=== PATIENT | male | born 1935 | race Caucasian/White ===

== ENCOUNTER 2019-07-16 11:08 | Outpatient (CLI) | payer MEDICARE, SELFPAY ==
--- NOTE | ~2019-07-16 | XR_ITS ---
XR finger 3rd LT min 2V DATE: 07/16/2019 11:40 INDICATION: Fall. Laceration and soft tissue swelling at proximal interphalangeal joint TECHNIQUE: 4 views COMPARISON: None FINDINGS: There are osteoarthritic changes at the interphalangeal joints, greater at the distal inter phalangeal joint. No erosive change is noted. No fracture, dislocation, periosteal reaction or bone destruction, radiopaque soft tissue foreign bod y or subcutaneous emphysema is evident. IMPRESSION: Osteoarthritis Reviewed, dictated and finalized at location A. IMPRESSION: Osteoarthritis
== END 2019-07-16 11:09 | disposition home or self-care (01) ==
PROVIDERS: PCP Family Medicine; Visit Provider Physician Assistant
DX: M19.042 Primary osteoarthritis, left hand (principal)
CPT/HCPCS: 73140

== ENCOUNTER 2019-08-23 01:13 | Outpatient (CLI) | payer MEDICARE, SELFPAY ==
[2019-08-23 18:41] LABS: SARS-CoV-2 RNA PCR Negative
== END 2019-08-23 01:14 | disposition home or self-care (01) ==
LOC: ANHCOVIDDT 01:14
PROVIDERS: PCP Family Medicine; Visit Provider Internal Medicine Gastroenterology
DX: Z01.812 Encounter for preprocedural laboratory examination (principal); Z11.59 Encounter for screening for other viral diseases
CPT/HCPCS: 87635; C9803; U0003

== ENCOUNTER 2019-08-25 01:53 | Day surgery (SDC) | payer MEDICARE, SELFPAY ==
[2019-08-20 10:20] VITALS: BMI 29.2
--- NOTE | 2019-08-25 09:16 | WPDGICN ---
Assessment and Plan Assessment and plan (1) Colon polyp: Code(s): K63.5 - Polyp of colon Status: Chronic Assessment and Plan: Patient has a history of colon polyps in the past. A large sessile polyp was removed in November 2018. Patient Becky returns today to ensure complete excision of the sessile polyp. (2) Atrial fibrillation: Qualifiers: Atrial fibrillation type: unspecified Qualified Code(s): I48.91 - Unspecified atrial fibrillation Code(s): I48.91 - Unspecified atrial fibrillation Status: Chronic Assessment and Plan: Patient is on warfarin anticoagulation because of atrial fibrillation this will be held during the several days prior to the colonoscopy for evaluation of his colon polyp. GI Consult Note Consult date/time: 08/25/19 09:16 HPI: Yovani Avitia Greg Ledesma is a 84 year old male seen in evaluation at the request of Dr Geena Kapoor. Patient has a history of large sessile colon polyp requiring piecemeal removal in November 2018. He presents today for follow-up examination. His current weight appetite bowel movements are normal. Patient has had colon polyps in the past as well. His current weight appetite bowel movements are described as normal. He denies any blood in his stools he states his weight is stable. Family history is noncontributory. Review of Systems Review of Systems: All systems reviewed & are unremarkable except as noted in HPI and below PMFSH Surgical History Surgical History Hx of cardiac catheterization (~03/06/15) Family History Family History Father Family history of cardiovascular disease Family history of coronary artery disease Family history of malignant neoplasm, Onset Age: 74 Mother Family history of cardiovascular disease Family history of coronary artery disease Patient's mother is , Onset Age: 76 Sibling Family history of malignant neoplasm Family history of coronary artery disease Other Diabetes mellitus Social History Social History Smoking status: Former smoker Alcohol intake: never Meds Home Medications and Allergies Home Medications Medication Instructions Recorded Confirmed Type amiodarone 200 mg tablet 200 mg PO DAILY 12/30/18 08/20/19 History finasteride 5 mg tablet 5 mg PO DAILY 12/30/18 08/20/19 History allopurinol 300 mg tablet 300 mg PO DAILY #90 tablet 01/29/19 08/20/19 Rx losartan 50 mg tablet 50 mg PO DAILY #90 tablet 01/29/19 08/20/19 Rx tamsulosin 0.4 mg capsule 0.4 mg PO DAILY #90 cap 03/24/19 08/20/19 Rx warfarin 7.5 mg tablet 7.5 mg PO DAILY tablet 05/13/19 08/20/19 History atorvastatin 10 mg tablet 10 mg PO DAILY #90 tablet 06/14/19 08/20/19 Rx empagliflozin 25 mg tablet 25 mg PO DAILY #90 tablet 06/14/19 08/20/19 Rx levothyroxine 50 mcg tablet 50 mcg PO DAILY #90 tablet 06/14/19 08/20/19 Rx insulin degludec 100 unit/mL (3 28 unit SUB-Q HS ml 07/15/19 08/20/19 History mL) subcutaneous pen amlodipine 10 mg tablet 10 mg PO DAILY #90 tablet 08/19/19 08/20/19 Rx exenatide microspheres [Bydureon] 2 mg SUBCUT WEEKLY 08/20/19 08/20/19 History glimepiride 2 mg PO DAILY 08/20/19 08/20/19 History fg-li-YC-vit K-aiowt-bmr-coQ10 1 cap PO DAILY 08/20/19 08/20/19 History [Daily Multivitamin] omega 3-hnq-opy-fish oil [Fish Oil] 1 cap PO DAILY 08/20/19 08/20/19 History psyllium husk [Daily Fiber] 0.4 g PO DAILY 08/20/19 08/20/19 History Allergies Allergy/AdvReac Type Severity Reaction Status Date / Time Sulfa (Sulfonamide Allergy Severe Rash, HIVES Verified 08/25/19 09:19 Antibiotics) Exam Narrative: Exam Narrative: Physical exam reveals patient to be alert. Vital signs stable. HEENT exam unremarkable. Lungs are clear to auscultation and percussion. Heart is without murmur or extra sound
[2019-08-25 09:29] VITALS: BP 169/80; PULSE 73; RESP 16; TEMP 36.2; O2SAT 97; BMI 28.8
[2019-08-25] MEDS: LACTATED RINGERS 1,000 ML 150 ML IV CONT (09:36)
[2019-08-25 09:52] LABS: INR 1.2; Prothrombin Time 14.4 Seconds (11.1-14.7)
--- NOTE | 2019-08-25 09:52 | WPDANESEPPF ---
Anes - Initial Pre Proc Eval Procedure: Operation Date: 08/25/19 10:00 Proposed Procedures p Screening Colonoscopy - Epifanio Guillaume MD Date/Time: 08/25/19 09:52 Surgeon: Epifanio Guillaume MD Pre Op Diagnosis: hx colon polyps Patient Data Age: 84 Gender: M Height: 5 ft 9 in Weight: 88.4 kg Last Vital Signs Temp 97.1 F L 08/25/19 09:29 Pulse 73 08/25/19 09:29 Resp 16 08/25/19 09:29 BP 169/80 H 08/25/19 09:29 Pulse Ox 97 08/25/19 09:29 Allergies Allergy/AdvReac Type Severity Reaction Status Date / Time Sulfa (Sulfonamide Allergy Severe Rash, HIVES Verified 08/25/19 09:19 Antibiotics) Home Medications Medication Instructions Recorded Confirmed Type amiodarone 200 mg tablet 200 mg PO DAILY 12/30/18 08/25/19 History finasteride 5 mg tablet 5 mg PO DAILY 12/30/18 08/25/19 History allopurinol 300 mg tablet 300 mg PO DAILY #90 tablet 01/29/19 08/25/19 Rx losartan 50 mg tablet 50 mg PO DAILY #90 tablet 01/29/19 08/25/19 Rx tamsulosin 0.4 mg capsule 0.4 mg PO DAILY #90 cap 03/24/19 08/25/19 Rx warfarin 7.5 mg tablet 7.5 mg PO DAILY tablet 05/13/19 08/25/19 History atorvastatin 10 mg tablet 10 mg PO DAILY #90 tablet 06/14/19 08/25/19 Rx empagliflozin 25 mg tablet 25 mg PO DAILY #90 tablet 06/14/19 08/20/19 Rx levothyroxine 50 mcg tablet 50 mcg PO DAILY #90 tablet 06/14/19 08/25/19 Rx insulin degludec 100 unit/mL (3 28 unit SUB-Q HS ml 07/15/19 08/25/19 History mL) subcutaneous pen amlodipine 10 mg tablet 10 mg PO DAILY #90 tablet 08/19/19 08/25/19 Rx exenatide microspheres [Bydureon] 2 mg SUBCUT WEEKLY 08/20/19 08/25/19 History glimepiride 2 mg PO DAILY 08/20/19 08/25/19 History uk-sb-KD-vit O-qrcjv-yoc-coQ10 1 cap PO DAILY 08/20/19 08/25/19 History [Daily Multivitamin] omega 5-mxn-tlq-fish oil [Fish Oil] 1 cap PO DAILY 08/20/19 08/25/19 History psyllium husk [Daily Fiber] 0.4 g PO DAILY 08/20/19 08/25/19 History Laboratory Tests 08/25/19 09:35 PT Pending INR Pending Patient hx anesthesia problems: none Family hx anesthesia problems: none PMFSH Surgical History Surgical History Hx of cardiac catheterization (~03/06/15) Family History Family History Father Family history of cardiovascular disease Family history of coronary artery disease Family history of malignant neoplasm, Onset Age: 74 Mother Family history of cardiovascular disease Family history of coronary artery disease Patient's mother is , Onset Age: 76 Sibling Family history of malignant neoplasm Family history of coronary artery disease Other Diabetes mellitus Social History Social History Smoking status: Former smoker Alcohol intake: never Anes - Eval Final PreProcedure Day of Procedure 08/25/19 09:52 Patient weight: normal Heart: irregular rhythm Lungs: clear to auscultation Airway: Mallampati scale class II Neurological: alert and oriented Last oral intake: >/= 8 hours ASA classification: IV Emergent: no Anesthetic plan: proceed Anesthesia type and monitoring: general GIVS and standard monitoring Informed Consent: The patient's anesthetic plan and its attendant risks and benefits were discussed with the patient/family/POA. Questions were solicited and answers provided to the satisfaction of the patient/family/POA.
[2019-08-25 09:54] LABS: Glucose Point of Care 88 (65-105)
[2019-08-25 10:31] VITALS: BP 103/57; PULSE 69; RESP 16; O2SAT 94
[2019-08-25 10:41] VITALS: BP 96/51; PULSE 56; RESP 16; O2SAT 100
[2019-08-25 10:43] LABS: Glucose Point of Care 88 (65-105)
[2019-08-25 10:51] VITALS: BP 116/80; PULSE 65; RESP 16; O2SAT 98
== END 2019-08-25 11:02 | disposition home or self-care (01) ==
PROVIDERS: PCP Family Medicine; Visit Provider Internal Medicine Gastroenterology
PROC: 0DJD8ZZ Inspection of Lower Intestinal Tract, Via Natural or Artificial Opening Endoscopic (ICD-10-PCS; CPT 45378; principal; 2019-08-25 10:00)
DX: Z09 Encounter for follow-up examination after completed treatment for conditions other than malignant neoplasm (principal); D12.3 Benign neoplasm of transverse colon; I48.91 Unspecified atrial fibrillation; Z79.01 Long term (current) use of anticoagulants; Z87.891 Personal history of nicotine dependence; Z79.4 Long term (current) use of insulin
CPT/HCPCS: 45385; 36415; 85610; 88305; J2704; J7120

== ENCOUNTER → 2020-04-10 02:10 | Outpatient (CLI) | payer MEDICARE, SELFPAY ==
[2020-04-10 18:21] LABS: SARS-CoV-2 RNA PCR Negative
== END ==
PROVIDERS: PCP Family Medicine; Visit Provider Urology
DX: Z01.818 Encounter for other preprocedural examination (principal); Z20.822 Contact with and (suspected) exposure to COVID-19
CPT/HCPCS: C9803; U0003; U0005

== ENCOUNTER 2020-04-10 08:16 | Outpatient (CLI) | payer MEDICARE, SELFPAY ==
--- NOTE | 2020-04-10 08:15 | ECG_ITS ---
Measurements Intervals [place] Rate: 68 P: 257 IN: 202 QRS: 15 QRSD: 120 T: 147 QT: 330 QTc: 352 Interpretive Statements SINUS RHYTHM BORDERLINE AV CONDUCTION DELAY ANTEROSEPTAL INFARCT, AGE INDETERMINATE INFERIOR INFARCT, AGE INDETERMINATE BORDERLINE T WAVE ABNORMALITY- HIGH LATERAL LEADS BASELINE ARTIFACT- I, II, III, AVR, AVL, AVF ABNORMAL ECG Electronically Signed On 04-10-2020 8:50:07 LEAD HOUSEKEEPER by Josafat Dempsey D.O.
[2020-04-10 09:03] LABS: Anion Gap 6 mmol/L (8-16); Blood Urea Nitrogen 28 mg/dL (9-20); Calcium 9.8 mg/dL (8.4-10.2); Carbon Dioxide 31 mmol/L (22-30); Chloride 107 mmol/L (98-107); Estimated Glomerular Filt Rate 53; Glucose 169 mg/dL (75-110); Potassium 5.2 mmol/L (3.4-5.0); Sodium 144 mmol/L (137-145)
[2020-04-10 09:06] LABS: INR 1.2; Prothrombin Time 15.5 Seconds (11.1-14.7)
[2020-04-10 09:07] LABS: Partial Thromboplastin Time 34.4 SECONDS (22.3-36.8)
== END 2020-04-10 08:17 | disposition home or self-care (01) ==
PROVIDERS: Anesthesiology; PCP Physician Assistant; Visit Provider Urology
DX: Z01.810 Encounter for preprocedural cardiovascular examination (principal); E78.2 Mixed hyperlipidemia; E11.29 Type 2 diabetes mellitus with other diabetic kidney complication; N18.30 Chronic kidney disease, stage 3 unspecified; I25.2 Old myocardial infarction
CPT/HCPCS: 36415; 80048; 85610; 85730; 93005

== ENCOUNTER 2020-04-13 00:25 | Day surgery (SDC) | payer MEDICARE, SELFPAY ==
[2020-04-06 10:40] VITALS: BMI 29.5
[2020-04-13] VITALS (7 sets, daily range): BP systolic 123–156; BP diastolic 66–80; PULSE 58–72; RESP 10–20; TEMP 36.5–36.6; O2SAT 94–99
--- NOTE | 2020-04-13 07:02 | WPDHPUPDATE1 ---
History and Physical Update Update Date/Time: 04/13/20 07:02 History and Physical has been reviewed, including an updated exam of the patient. There are NO changes in the patient's condition. Risks, benefits, and alternatives have been discussed and questions answered. Patient agrees to proceed with procedure.
--- NOTE | 2020-04-13 07:57 | WPDANESEPPF ---
Anes - Initial Pre Proc Eval Procedure: Operation Date: 04/13/20 09:00 Proposed Procedures p Circumcision - Morgan Mahoney MD Date/Time: 04/13/20 07:57 Surgeon: Morgan Mahoney MD Pre Op Diagnosis: Phimosis Patient Data Age: 85 Gender: M Height: 1.75 m Weight: 90.9 kg Allergies Allergy/AdvReac Type Severity Reaction Status Date / Time Sulfa (Sulfonamide Allergy Severe Rash, HIVES Verified 04/06/20 10:24 Antibiotics) Home Medications Medication Instructions Recorded Confirmed Type amiodarone 200 mg tablet 200 mg PO QAM 12/30/18 04/06/20 History finasteride 5 mg tablet 5 mg PO HS 12/30/18 04/06/20 History warfarin 7.5 mg tablet See Rx Instructions .ROUTE 05/13/19 04/06/20 History .COMPLEX tablet insulin degludec 100 unit/mL (3 28 unit SUB-Q HS ml 07/15/19 04/06/20 History mL) subcutaneous pen exenatide microspheres [Bydureon] 2 mg SUBCUT WEEKLY 08/20/19 04/06/20 History glimepiride 2 mg PO PRN 08/20/19 04/06/20 History df-ee-AP-vit S-jljbz-cre-coQ10 1 cap PO DAILY 08/20/19 04/06/20 History [Daily Multivitamin] omega 5-bpx-rzi-fish oil [Fish Oil] 2 cap PO QAM 08/20/19 04/06/20 History psyllium husk [Daily Fiber] 0.4 g PO DAILY 08/20/19 04/06/20 History blood sugar diagnostic #100 each 09/20/19 02/08/20 Rx Jardiance 25 mg PO QAM 04/06/20 04/06/20 History allopurinol 300 mg PO QAM 04/06/20 04/06/20 History amlodipine 10 mg PO QAM 04/06/20 04/06/20 History atorvastatin 10 mg PO HS 04/06/20 04/06/20 History levothyroxine 50 mcg DAILY 04/06/20 04/06/20 History losartan 50 mg PO QAM 04/06/20 04/06/20 History metoprolol succinate 50 mg PO DAILY 04/06/20 04/06/20 History tamsulosin 0.04 mg HS 04/06/20 04/06/20 History Patient hx anesthesia problems: none Family hx anesthesia problems: none [facility] Past Medical History Medical History Age-related macular degeneration Arteriosclerosis of aorta Atrial fibrillation 2006 Atrial fibrillation Chronic kidney disease due to benign hypertension Colon polyp Gout Metabolic syndrome Mixed hyperlipidemia MRSA infection Stage 3 chronic kidney disease Type 2 diabetes mellitus with other diabetic kidney complication Surgical History Surgical History Hx of cardiac catheterization (~03/06/15) Family History Family History Father Family history of cardiovascular disease Family history of coronary artery disease Family history of malignant neoplasm, Onset Age: 74 Mother Family history of cardiovascular disease Family history of coronary artery disease Patient's mother is , Onset Age: 76 Sibling Family history of malignant neoplasm Family history of coronary artery disease Other Diabetes mellitus Social History Social History Smoking status: Former smoker Additional smoking assessment comments: STATES SMOKED FOR MAYBE 5 YRS LATE TEENS/EARILY 20'S Alcohol intake: former Alcohol use details: STATES HAS NOT DRANK FOR 60YRS Substance use: never Living arrangements: with family Spiritual care concerns: No Anes - Eval Final PreProcedure Day of Procedure 04/13/20 07:57 Patient weight: obese Heart: regular rate and rhythm Lungs: clear to auscultation and normal air movement Airway: Mallampati scale class II Neurological: alert and oriented Last oral intake: >/= 8 hours ASA classification: III Emergent: no Anesthetic plan: proceed Anesthesia type and monitoring: general LMA Informed Consent: The patient's anesthetic plan and its attendant risks and benefits were discussed with the patient/family/POA. Questions were solicited and answers provided to the satisfaction of the patient/family/POA.
[2020-04-13] MEDS: LACTATED RINGERS 1,000 ML 30 ML IV CONT (08:00)
[2020-04-13 08:09] LABS: Glucose Point of Care 133 (65-105)
[2020-04-13] MEDS: ceFAZolin 2 GM/D5W 50 ML 2 GM/50 ML BAG IVPB (08:21)
[2020-04-13] MEDS: BUPIVACAINE HCL 0.5% PF 30 ML VIAL INFILTRATE (08:46)
[2020-04-13] MEDS: BACITRACIN OINTMENT 15 GM TUBE 1 APPLIC TOPICAL (08:59)
--- NOTE | 2020-04-13 09:16 | PM.PROC ---
Procedure Note - Detailed Date of procedure: 04/13/20 Pre-op diagnosis: Phimosis Post-op diagnosis: same Procedure performed: Circumcision Description of procedure: The patient is brought to the operative suite areas prepped and draped in a routine sterile fashion while in a supine position. The foreskin was markedly adherent to the glans penis. These adhesions were bluntly taken-down with a hemostat. The lines of circumcision are outlined using a sterile marking pen. 2 circumferential circumcising incisions were made and carried down to Colle's fascia. The penile foreskin is circumferentially excised. Hemostasis is obtained with electric cautery. The edges of the penile skin reapproximated using a combination of running and interrupted 4-0 chromic. A penile block is administered at the base of the penis with 0.25% bupivacaine. The patient was taken to the recovery room in good condition. EBL was approximately 5cc. Anesthesia: GLMA Surgeon: Morgan Mahoney MD Estimated blood loss (mL): 5 Drains: No Packing: No Pathology: yes (Foreskin) Complications: No immediate complications Condition: stable Disposition: PACU
--- NOTE | 2020-04-13 09:56 | SUR.PHASEI ---
PT AWAKE AND ALERT. READY TO TRANSFER TO [facility]
== END 2020-04-13 11:05 | disposition home or self-care (01) ==
PROVIDERS: PCP Physician Assistant; Visit Provider Urology
PROC: (CPT 54161; principal; 2020-04-13 08:15)
DX: N47.1 Phimosis (principal); N47.7 Other inflammatory diseases of prepuce; I12.9 Hypertensive chronic kidney disease with stage 1 through stage 4 chronic kidney disease, or unspecified chronic kidney disease; N18.30 Chronic kidney disease, stage 3 unspecified; E11.22 Type 2 diabetes mellitus with diabetic chronic kidney disease; I25.10 Atherosclerotic heart disease of native coronary artery without angina pectoris; E78.2 Mixed hyperlipidemia; M10.9 Gout, unspecified; I48.91 Unspecified atrial fibrillation; H35.3290 Exudative age-related macular degeneration, unspecified eye, stage unspecified; Z79.01 Long term (current) use of anticoagulants; Z79.4 Long term (current) use of insulin; Z79.84 Long term (current) use of oral hypoglycemic drugs; Z86.14 Personal history of Methicillin resistant Staphylococcus aureus infection; Z87.891 Personal history of nicotine dependence; E66.9 Obesity, unspecified; Z68.30 Body mass index [BMI] 30.0-30.9, adult
CPT/HCPCS: 54161; 36415; 80048; 82948; 85610; 85730; 88304; 93005; A9270; C9803; J0690; J1100; J2405; J2704; J3010; J7120; U0003; U0005

== ENCOUNTER 2021-12-25 04:06 | Inpatient (IN) | payer MEDICARE, SELFPAY ==
[2021-12-25] VITALS (18 sets, daily range): BP systolic 123–155; BP diastolic 65–80; PULSE 71–85; RESP 14–20; TEMP 36.9–37.3; O2SAT 91–99
--- NOTE | ~2021-12-25 | XR_ITS ---
EXAMINATION: XR chest 1V portable DATE: 12/25/2021 05:12 INDICATION: Weakness. TECHNIQUE: A single frontal view of the chest was obtained on 2 radiographs. COMPARISON: Chest 2 views 10/30/2017, CT abdomen and pelvis 01/04/2015 FINDINGS: There is no pneumonia, pleural effusion, pneumothorax. The heart size is normal. IMPRESSION: 1. No acute cardiopulmonary disease. Reviewed, dictated and finalized at location A. DRILL OPERATOR HELPER CABLE TOOL
--- NOTE | ~2021-12-25 | US_ITS ---
EXAMINATION: US abdomen limited DATE: 12/29/2021 09:30 INDICATION: transaminitis TECHNIQUE: Multiple grayscale and Doppler ultrasound images of limited portions of the abdomen were o btained. COMPARISON: None available. FINDINGS: Not well visualized. The liver is enlarged to 17.3 cm, with increased echogenicity and norm al echotexture. No surface nodularity. Normal hepatopetal flow in the main portal vein. The gallbladd er is normal with no abnormal wall thickening, pericholecystic fluid or stones. The common bile duct measures 3 mm. There was no sonographic Giang sign. Incidental note of a 4.3 cm simple right upper p ole cyst. IMPRESSION: Hepatomegaly. Echogenic liver, most commonly due to steatosis but also can be seen with hepatitis and fibrosis. Reviewed, dictated and finalized at location K. Y WEIGHER IMPRESSION: Hepatomegaly. Echogenic liver, most commonly due to steatosis but also can be s een with hepatitis and fibrosis.
--- NOTE | ~2021-12-25 | CT_ITS ---
EXAMINATION: CTA brain carotid DATE: 12/27/2021 11:53 INDICATION: Altered mental status. TECHNIQUE: Computed tomographic angiography (CTA) of the head was performed without and with 100 mL O mnipaque-350 intravenous contrast. CTA of the neck was performed with intravenous contrast. Automated exposure control and iterative reconstruction technique were employed. The dose-length product was 2 005.87 mGy-cm. Maximum intensity projection and volume rendered 3D-reconstructions were created by malinda osborn technologist on a separate workstation. COMPARISON: None. FINDINGS: HEAD CTA: There is diffuse brain volume loss. There are scattered areas of low attenuation in the cer ebral white matter, which is within normal limits for the patient's age. There is no intracranial hem orrhage, acute infarction, or abnormal intracranial mass lesion. The ventricles are normal in size. T here is mucosal thickening in the paranasal sinuses. There are likely changes of ocular lens replacem ent surgeries. The mastoid air cells are normal. Right vertebral artery is dominant. There is no sign ificant stenosis of basilar artery or the posterior cerebral arteries. The posterior communicating ar teries are normal. There is no significant stenosis of the intracranial internal carotid arteries or anterior or middle cerebral arteries. Anterior communicating artery is normal. NECK CTA: There is a small left pleural effusion. There are no pathologically enlarged lymph nodes. T here is plaque in the proximal internal carotid arteries. There is 0% stenosis of the proximal right internal carotid artery relative to normal distal artery lumen diameter (NASCET criteria). There is 0 % stenosis of the proximal left internal carotid artery relative to normal distal artery lumen diamet er. There is moderate cervical spondylosis. IMPRESSION: 1. Normal aging brain. 2. No aneurysm or significant intracranial arterial stenosis. 3. 0% stenosis of the proximal internal carotid arteries relative to normal distal artery lumen diame ters (NASCET criteria). Reviewed, dictated and finalized at location A. TS MEDICINE TRAINER IMPRESSION: 1. Normal aging brain. 2. No aneurysm or significant intracranial arterial stenosis. 3. 0% stenosis of the proximal internal carotid arteries relative to normal dis zulma artery lumen diameters (NASCET criteria).
--- NOTE | ~2021-12-25 | XR_ITS ---
EXAMINATION: XR chest 1V portable DATE: 12/28/2021 10:46 INDICATION: COVID-19 pneumonia. TECHNIQUE: A single frontal view of the chest was obtained on 2 radiographs. COMPARISON: Chest single view 12/25/2021 FINDINGS: There are airspace opacities at the lung bases. No pleural effusion or pneumothorax. The he art size is normal. IMPRESSION: 1. Worsened airspace opacities at the lung bases, consistent with atelectasis versus pneumonia. Reviewed, dictated and finalized at location A. [employer] IMPRESSION: 1. Worsened airspace opacities at the lung bases, consistent with atelectasis v ersus pneumonia.
--- NOTE | 2021-12-25 04:48 | ECG_ITS ---
Measurements Intervals [place] Rate: 75 P: 257 [place]: 186 QRS: 16 QRSD: 114 T: 98 QT: 406 QTc: 455 Interpretive Statements SINUS OR ECTOPIC ATRIAL RHYTHM INTRAVENTRICULAR CONDUCTION DELAY ANTEROSEPTAL INFARCT, AGE INDETERMINATE BORDERLINE ST-T WAVE ABNORMALITY- INF/HIGH LAT LEADS BASELINE ARTIFACT- I, II, III, AVR, AVL, AVF, V4-V6 ABNORMAL ECG COMPARED TO ECG 04/10/2020 08:55:32 NO SIGNIFICANT CHANGES Electronically Signed On 12-25-2021 6:47:22 CELL STRIPPER FINAL by Josafat Dempsey D.O.
--- NOTE | 2021-12-25 04:50 | ED.WEAKNESS ---
HPI - Weakness General Chief complaint: Weakness <Denilson Schulte MD - Last Filed: 12/25/21 08:52> Stated complaint: FALL, WEAKNESS, DIZZINESS <Denilson Schulte MD - Last Filed: 12/25/21 08:52> Time Seen by Provider: 12/25/21 04:27 <Denilson Schulte MD - Last Filed: 12/25/21 08:52> History of Present Illness HPI Narrative: This is an 86-year-old male past medical history of A. fib on Coumadin, type 2 diabetes, hypertension, who presents to the emergency department by EMS after a fall with generalized weakness. Patient states he has felt generally weak for the past several weeks, worse in the last few days with some upper respiratory congestion and cough. He states his was recently diagnosed with the flu. This evening while walking, he felt generally weak and states he lowered himself to the ground. He denies falling, head injury or loss of consciousness. He states he was not able to stand for approximately 30 minutes until EMS arrival. He denies chest pain, shortness of breath, diarrhea or bleeding from any source. He has no other complaints at this time. <Denilson Schulte MD - Last Filed: 12/25/21 08:52> Related Data Home medications: Home Medications Medication Instructions Recorded Confirmed finasteride 5 mg tablet 5 mg PO HS 12/30/18 12/25/21 warfarin 7.5 mg tablet 7.5 mg PO .TUE/THUR/SUN 05/13/19 12/25/21 insulin degludec 100 unit/mL (3 28 unit subcut HS 07/15/19 12/25/21 mL) subcutaneous pen (Tresiba FlexTouch U-100 insulin) exenatide microspheres 2 mg/0.65 2 mg subcut WEEKLY 08/20/19 12/25/21 mL subcutaneous pen injector (Bydureon) glimepiride 2 mg tablet 2 mg PO PRN BLOOD SURGAR 08/20/19 12/25/21 acoutmer-tsi-VQ 200 mcg-vit K 100 1 cap PO DAILY 08/20/19 12/25/21 mcg-lycop 500 vpu-gvvrvh-O35 capsule (Daily Multivitamin) omega 1-iqa-irk-fish oil 1,000 mg 2 cap PO QAM 08/20/19 12/25/21 (120 mg-180 mg) capsule (Fish Oil) psyllium husk 0.4 gram capsule 0.4 g PO DAILY 08/20/19 12/25/21 (Daily Fiber) metoprolol succinate 50 mg 50 mg PO DAILY 04/06/20 12/25/21 tablet,extended release 24 hr dapagliflozin 10 mg tablet 10 mg PO DAILY 06/05/20 12/25/21 (Farxiga) amiodarone 200 mg tablet 200 mg PO .COMPLEX 01/15/21 12/25/21 oxybutynin chloride 5 mg 5 mg PO DAILY 05/18/21 12/25/21 tablet,extended release 24 hr allopurinol 300 mg tablet 300 mg PO DAILY 12/25/21 12/25/21 amlodipine 10 mg tablet 10 mg PO DAILY 12/25/21 12/25/21 atorvastatin 10 mg tablet 10 mg PO DAILY 12/25/21 12/25/21 levothyroxine 50 mcg tablet 50 mcg PO DAILY 12/25/21 12/25/21 tamsulosin 0.4 mg capsule 0.4 mg PO DAILY 12/25/21 12/25/21 warfarin 10 mg tablet 5 mg PO .M/W/F/SAT 12/25/21 12/25/21 <Denilson Schulte MD - Last Filed: 12/25/21 08:52> Allergies/Adverse reactions: Allergies Allergy/AdvReac Type Severity Reaction Status Date / Time Sulfa (Sulfonamide Allergy Severe Rash, HIVES Verified 12/21/21 13:15 Antibiotics) <Denilson Schulte MD - Last Filed: 12/25/21 08:52> Review of Systems Review of Systems: CONSTITUTIONAL: Denies fever, chills, or sweats. EYES: Denies visual changes, redness, or discharge. ENT: Congestion, rhinorrhea denies sore throat, or otalgia. CARDIOVASCULAR: Denies chest pain, palpitations, or edema. RESPIRATORY: Denies cough or dyspnea. GASTROINTESTINAL: Denies abdominal pain, nausea, vomiting, or diarrhea. GENITOURINARY: Denies dysuria or hematuria. SKIN: Denies rash or itching. MUSCULOSKELETAL: Denies back pain, joint pain, or myalgia. NEUROLOGIC: Generalized weakness denies headache, numbness, dizziness PSYCHIATRIC: Denies anxiety or depression. <Denilson Schulte MD - Last Filed: 12/25/21 08:52> [facility] Past Medical History Medical History: Medical History (Updated 12/25/21 @ 14:41 by KATT Durham) Age-related macular degeneration Arteriosclerosis of aorta Atrial fibrillation 2007 Atrial fibrillation Chronic
[2021-12-25 05:43] LABS: Influenza A QL RT-PCR Negative (Negative); Influenza B QL RT-PCR Negative (Negative); SARS-CoV-2 RNA PCR Positive
[2021-12-25 05:45] LABS: Appearance Urine Clear (Clear); Bilirubin Urine Negative (Negative); Blood Urine Negative (Negative); Color Urine Yellow (Yellow); Glucose Urine UA 2+ mg/dL (Negative); Ketones Urine Trace mg/dL (Negative); Leukocyte Esterase Ur Negative LEU/UL (Negative); Nitrate Urine Negative (Negative); Protein Urine Negative (Negative); Urobilinogen Urine 0.2 mg/dL (<2.0); pH Urine 6.5 (5.0-9.0)
[2021-12-25 05:46] LABS: Basophils Percent Auto 0.5 % (0.2-1.2); Eosinophils Absolute Auto 0.1 K/mm3 (0-0.3); Eosinophils Percent Auto 0.8 % (0-4.4); Hematocrit 48.7 % (42.0-52.0); Hemoglobin 16.5 g/dL (14.0-18.0); Immature Granulocyte Absolute 0.03 K/mm3 (0.00-0.031); Immature Granulocyte Percent A 0.4 % (0-0.5); Immature Platelet Fraction Pct 4.5 % (0.9-11.2); Lymphocytes Absolute Auto 1.13 K/mm3 (0.9-3.2); Lymphocytes Percent Auto 13.6 % (18.3-44.2); Mean Corpuscular HGB Conc 33.9 g/dl (32-36); Mean Corpuscular Hemoglobin 33.1 pg (26-34); Mean Corpuscular Volume 97.8 fl (80-100); Monocytes Absolute Auto 1.2 K/mm3 (0.1-0.6); Monocytes Percent Auto 14.8 % (2.6-8.5); Neutrophils Absolute Auto 5.8 K/mm3 (1.3-6.7); Neutrophils Percent Auto 69.9 % (45.5-73.1); Platelet Count Result 118 k/mm3 (150-375); Red Blood Count 4.98 M/mm3 (4.6-6.20); Red Cell Distribution Width 14.4 % (11.5-14.5); White Blood Count 8.3 K/mm3 (4.5-10.0)
[2021-12-25 05:53] LABS: Alanine Aminotransferase 32 U/L (6-50); Albumin Level 4.1 g/dL (3.5-5.1); Alkaline Phosphatase 55 U/L (38-126); Anion Gap 12 mmol/L (8-16); Aspartate Amino Transferase 28 U/L (17-59); Bilirubin,Total 0.9 mg/dL (0.2-1.3); Blood Urea Nitrogen 21 mg/dL (9-20); Calcium 8.5 mg/dL (8.4-10.2); Carbon Dioxide 25 mmol/L (22-30); Chloride 104 mmol/L (98-107); Creatine Kinase 74 U/L (55-170); Estimated Glomerular Filt Rate > 60; Glucose 121 mg/dL (65-110); Potassium 3.5 mmol/L (3.4-5.0); Sodium 141 mmol/L (137-145)
[2021-12-25 06:04] LABS: Troponin I < 0.012 ng/mL (0.000-0.034)
[2021-12-25 06:07] LABS: Mucus Urine Rare /lpf; RBC Urine 0-2 /hpf (0-2); WBC Urine 0-3 /hpf
[2021-12-25 06:08] LABS: Add Urine Microscopic? YES
--- NOTE | 2021-12-25 09:12 | PCCCNOTE ---
Spoke with pt regarding home health, PT/OT. Pt would like to have these services set up to get stronger at home. I call several HH agencies, but due to pt being newly diagnosed with COVID they all have mandatory 10 day wait period before services could start.
--- NOTE | 2021-12-25 10:01 | PC.NURSE ---
Attempted to walk patient in room. Patient very unsteady and would not have been able to stand without RN assistance. Patient had to be assisted back to bed with RICHY Durham's help.
--- NOTE | 2021-12-25 11:30 | PM.IMHP ---
H&P: HPI History of Present Illness Date/Time: 12/25/21 11:30 Chief Complaint: Weakness, I just can't walk Narrative: Patient is an 86-year-old male with past medical history of AFib, diabetes, hypertension, who presented to the ED with complaints of a fall a related to generalized weakness. Patient stated that he went to the bathroom and as he was trying to exit the bathroom he got very lightheaded and was unable to get up on his own. Patient stated that he uses a walker or cane at baseline. Patient also stated that he is usually stable however has had some weakness of last year. He does have a little cough which he stated that he was unsure of what was coming up. He also denies any chest pain, shortness a breath, nausea, vomiting, diarrhea, constipation, weakness, sweats, fevers, chills. Patient stated that he had 0 falls over the last month. He also stated that his is who helps him at home. Patient is currently needing support at home, and will probably need to get some rehab, as it appears he has been down for the last couple of weeks. patient is being admitted to the hospitalist service for rehab placement in observation Review of Systems Review of Systems: All systems reviewed & are unremarkable except as noted in HPI and below PMFSH Past Medical History Medical History (Updated 12/25/21 @ 14:41 by KATT Durham) Age-related macular degeneration Arteriosclerosis of aorta Atrial fibrillation 2006 Atrial fibrillation Chronic kidney disease due to benign hypertension Colon polyp Gout Metabolic syndrome Mixed hyperlipidemia MRSA infection Stage 3 chronic kidney disease Type 2 diabetes mellitus with other diabetic kidney complication Surgical History Surgical History Hx of cardiac catheterization (~03/06/15) Family History Family History Father Family history of cardiovascular disease Family history of coronary artery disease Family history of malignant neoplasm, Onset Age: 74 Mother Family history of cardiovascular disease Family history of coronary artery disease Patient's mother is , Onset Age: 76 Sibling Family history of malignant neoplasm Family history of coronary artery disease Other Diabetes mellitus Social History Social History (Updated 12/25/21 @ 14:12 by KATT Durham) Social History: Patient currently lives with his Faustina who will be his surrogate. He retired from [employer] and has 4 boys. He denies any pets in the home. He also wishes to be a full code however only if his life would be viable. Smoking status: Former smoker Additional smoking assessment comments: STATES SMOKED FOR MAYBE 5 YRS LATE TEENS/EARILY 20'S Alcohol intake: former Alcohol use details: STATES HAS NOT DRANK FOR 60YRS Substance use: never Lack of Transportation: No Lack of Food: Never True Current Housing: I Have Housing Concerned About Future Housing: No Difficulty Paying Gas/Electric Bills: No Difficulty Paying for Meds: No Currently Unemployed: No Education: High School Diploma/GED Living arrangements: with family Additional living arrangements comments: With Occupation/Education: retired Additional occupation/education comments: [employer] Gender identity (if verbalized by the patient): Male Sexual Orientation (if Verbalized by the Patient): Straight or Heterosexual Spiritual care concerns: No Agree to blood products: Yes Meds Home Medications and Allergies Home Medications Medication Instructions Recorded Confirmed Type finasteride 5 mg tablet 5 mg PO HS 12/30/18 12/25/21 History warfarin 7.5 mg tablet 7.5 mg PO .TUE/THUR/SUN 05/13/19 12/25/21 History insulin degludec 100 unit/mL (3 28 unit subcut HS 07/15/19 12/25/21 History mL) subcutaneous pen (Tresiba
[2021-12-25 16:47] LABS: Glucose Point of Care 141 mg/dl (65-105)
[2021-12-25] MEDS: WARFARIN (*PBKC) 7.5 MG TABLET PO (17:27)
[2021-12-25] MEDS: FINASTERIDE 5 MG TABLET PO (20:22)
[2021-12-25] MEDS: INSULIN GLARGINE (*BKC) 100 UNITS/ML 23 UNITS SUB-Q (20:30)
[2021-12-25 22:30] LABS: Glucose Point of Care 184 mg/dl (65-105)
[2021-12-26] VITALS (8 sets, daily range): BP systolic 131–147; BP diastolic 68–74; PULSE 66–72; RESP 14–18; TEMP 36.3–37.5; O2SAT 91–100
[2021-12-26] MEDS: LEVOTHYROXINE SODIUM 50 MCG TABLET PO (05:27)
[2021-12-26 06:09] LABS: Basophils Percent Auto 0.6 % (0.2-1.2); Eosinophils Percent Auto 0.3 % (0-4.4); Hematocrit 47.9 % (42.0-52.0); Hemoglobin 16.4 g/dL (14.0-18.0); Immature Granulocyte Absolute 0.02 K/mm3 (0.00-0.031); Immature Granulocyte Percent A 0.3 % (0-0.5); Lymphocytes Absolute Auto 1.84 K/mm3 (0.9-3.2); Lymphocytes Percent Auto 26.2 % (18.3-44.2); Mean Corpuscular HGB Conc 34.2 g/dl (32-36); Mean Corpuscular Hemoglobin 32.4 pg (26-34); Mean Corpuscular Volume 94.7 fl (80-100); Mean Platelet Volume 10.8 fl (7.4-10.4); Monocytes Absolute Auto 1.6 K/mm3 (0.1-0.6); Monocytes Percent Auto 22.1 % (2.6-8.5); Neutrophils Absolute Auto 3.5 K/mm3 (1.3-6.7); Neutrophils Percent Auto 50.5 % (45.5-73.1); Platelet Count Result 102 k/mm3 (150-375); Red Blood Count 5.06 M/mm3 (4.6-6.20); Red Cell Distribution Width 14.3 % (11.5-14.5)
[2021-12-26 06:16] LABS: INR 1.5; Prothrombin Time 17.7 Seconds (11.1-14.7)
[2021-12-26 06:17] LABS: Partial Thromboplastin Time 41.7 SECONDS (22.3-36.8)
[2021-12-26 06:20] LABS: Alanine Aminotransferase 34 U/L (6-50); Albumin Level 4.1 g/dL (3.5-5.1); Alkaline Phosphatase 63 U/L (38-126); Anion Gap 12 mmol/L (8-16); Aspartate Amino Transferase 34 U/L (17-59); Bilirubin,Total 0.7 mg/dL (0.2-1.3); Blood Urea Nitrogen 19 mg/dL (9-20); Calcium 8.5 mg/dL (8.4-10.2); Carbon Dioxide 26 mmol/L (22-30); Chloride 103 mmol/L (98-107); Estimated Glomerular Filt Rate > 60; Glucose 91 mg/dL (65-110); Magnesium 2.1 mg/dL (1.6-2.3); Potassium 3.5 mmol/L (3.4-5.0); Sodium 141 mmol/L (137-145)
[2021-12-26 07:54] LABS: Glucose Point of Care 163 mg/dl (65-105)
--- NOTE | 2021-12-26 09:10 | PM.IMPN ---
Progress Note: A&P Assessment and Plan (1) COVID-19: Code(s): U07.1 - COVID-19 Status: Acute Assessment and Plan: Tested positive in the ed on 12/25/21. No supplemental O2 needs currently. CXR shows no acute disease IV Remdesivir and dexamethasone not indicated Monitor respiratory status Continue supportive care. (2) Fall: Qualifiers: Encounter type: initial encounter Qualified Code(s): W19.XXXA - Unspecified fall, initial encounter Code(s): W19.XXXA - Unspecified fall, initial encounter Status: Acute Assessment and Plan: reported ground level fall on admission. PT and OT consulted and recommend SNF. Awaiting placement. ambulate with assistance (3) General weakness: Code(s): R53.1 - Weakness Status: Acute Assessment and Plan: as above (4) Type 2 diabetes mellitus with other diabetic kidney complication: Code(s): E11.29 - Type 2 diabetes mellitus with other diabetic kidney complication Status: Chronic Assessment and Plan: Chronic, stable. serum glucose 91. hold home glimepiride Continue Accu-Cheks a.c. HS, moderate dose aspart meal correction and hypoglycemia protocol Bydureon not on formulary Lantus 23 units at HS Resume SGLT-2 empagliflozin formulary substitute started. (5) Hypothyroidism (acquired): Code(s): E03.9 - Hypothyroidism, unspecified Status: Acute Assessment and Plan: Chronic, stable. continue home levothyroxine 50 mcg daily TSH from 12/13/2021 3.840, T4 1.38 (6) Mixed hyperlipidemia: Code(s): E78.2 - Mixed hyperlipidemia Status: Chronic Assessment and Plan: Chronic, cholesterol from 12/13/2021 showed 165, LDL 92, the LDL 32, HDL 41 increase atorvastatin to 20 mg daily (7) Atrial fibrillation: Qualifiers: Atrial fibrillation type: unspecified Qualified Code(s): I48.91 - Unspecified atrial fibrillation Code(s): I48.91 - Unspecified atrial fibrillation Status: Chronic Assessment and Plan: Chronic, currently in sinus rhythm 75 continue warfarin for anticoagulation continue amiodarone 200 mg Q48 hours follows with Dr. Jansen outpatient. stable. Check PT/INR daiily Plan CODE STATUS: FULL CODE Disposition: SNF placement. Awaiting authorization Time Spent With Patient Time with patient: 15 - 25 minutes Subjective Date/time seen: 12/26/21 09:10 He reports mild sore throat, headache and nonproductive cough. No SOB, PAINTER, sputum, chest pain, loss of taste or smell, abd pain, N/V/D or constipation. He reports his appetite is fair and generalized weakness is unchanged. Review of Systems Review of Systems: All systems reviewed & are unremarkable except as noted in HPI and below Exam Narrative: General: No acute distress.? non-toxic appearing. Older adult male sitting up in bed. Mental Status/Psych: Awake, alert and oriented x3 with clear speech. Neutral mood and affect. Pleasant and cooperative. Skin: Skin fair, warm, dry and intact without rashes or lesions. No open wounds. Good turgor.? HEENT: Normocephalic. Sclera is non-icteric. Pupils equal and round. Grossly normal hearing. Oral mucosa moist. Oropharynx within normal limits. Neck: Supple. Heart: S1 and S2 regular rate and rhythm. No murmurs, gallops, or rubs auscultated. Chest: Respirations even and unlabored. Lung sounds are clear to auscultation in all lobes bilaterally without wheezes, rhonchi, or rales. Speaking in full sentences. Abdomen: Soft, round and non-tender to palpation.? Bowel sounds present in all 4 quadrants. Extremities:? Grossly normal ROM all extremities with generalized weakness. No edema, erythema or tenderness to palpation. Radial and dorsalis pedis pulses +2 bilaterally. Neurological: No focal deficits. Cranial nerves 2-12 grossly intact. No facial droop. Objective Data Vital Sign
[2021-12-26] MEDS: LOSARTAN POTASSIUM 100 MG TABLET PO (09:20)
[2021-12-26] MEDS: amLODIPine BESYLATE 5 MG TABLET 10 MG PO (09:20)
[2021-12-26] MEDS: OMEGA 3 POLYUNSAT FATTY ACIDS 1 GM CAP 2 GM PO (09:20)
[2021-12-26] MEDS: ATORVASTATIN 10 MG TABLET PO (09:20)
[2021-12-26] MEDS: TAMSULOSIN HCL 0.4 MG CAPSULE PO (09:20)
[2021-12-26] MEDS: allopurinoL 300 MG TABLET PO (09:20)
[2021-12-26] MEDS: EMPAGLIFLOZIN 10 MG TABLET PO (09:20)
[2021-12-26] MEDS: METOPROLOL SUCCINATE EXT REL 50 MG TABCR PO (09:21)
[2021-12-26 11:35] LABS: Glucose Point of Care 126 mg/dl (65-105)
[2021-12-26 11:48] LABS: Folic Acid > 20.0 ng/mL (2.76->20)
[2021-12-26] MEDS: THERAPEUTIC MULTIVITAMINS/MINERALS TAB (*BKC) 1 TABLET PO (11:58)
[2021-12-26 16:51] LABS: Glucose Point of Care 123 mg/dl (65-105)
[2021-12-26] MEDS: AMIODARONE HCL 200 MG TABLET PO (18:11)
[2021-12-26] MEDS: WARFARIN (*PBKC) 5 MG TABLET PO (18:11)
[2021-12-26] MEDS: ACETAMINOPHEN 325 MG TABLET 650 MG PO (20:21)
[2021-12-26] MEDS: FINASTERIDE 5 MG TABLET PO (20:22)
[2021-12-26] MEDS: INSULIN GLARGINE (*BKC) 100 UNITS/ML 23 UNITS SUB-Q (20:37)
[2021-12-26 20:55] LABS: Glucose Point of Care 169 mg/dl (65-105)
[2021-12-27] VITALS (15 sets, daily range): BP systolic 71–159; BP diastolic 52–106; PULSE 57–135; RESP 14–20; TEMP 36–36.6; O2SAT 90–94
--- NOTE | 2021-12-27 | ECHO_ITS ---
Patient Info Name: Yovani Garza Age: 86 years : 1935 Gender: Male Ht: 68 in Wt: 206 lbs BSA: 2.15 m2 HR: 68 bpm BP: 125 / 69 mmHg Heart Rhythm: Sinus Rhythm Technical Quality: Good Exam Date: 12/27/2021 4:29 PM Exam Location: [facility] Pulmonary Exam Room: [facility] Patient Status: Inpatient Admit Date: 12/27/2021 Staff Ordering Physician: Sandra Prakash APRN Systems Architecture Analyst: Kristie Lynch RDCS Attending Provider: Cash Jacques MD Referring Physician: Olinda AQUINO; Exam Type: CA echo doppler color flow Study Info Indications - syncope covid Complete two-dimensional, color flow and Doppler transthoracic echocardiogram is performed. Summary 1. Complete two-dimensional, color flow and Doppler transthoracic echocardiogram is performed. 2. Normal left ventricular size with severe concentric hypertrophy. 3. Hyperdynamic systolic contractility with grade 2 diastolic noncompliance. 4. Dilated left atrium. 5. Trivial amount of MR. Left Ventricle Left ventricular chamber dimension is normal. Left ventricular systolic function is hyperdynamic, estimated at >70%. There is severe concentric increased left ventricular wall thickness. The left ventricular diastolic function is grade II diastolic dysfunction. Right Ventricle Right ventricular chamber dimension is normal. Left Atria Left atrial chamber dimension is moderately enlarged. Right Atria Right atrial chamber dimension is normal. Aortic Valve The aortic valve is trileaflet. There is mild aortic valve sclerosis. Pulmonic Valve The pulmonic valve is not well visualized. Mitral Valve The mitral valve has normal leaflets. There is trace mitral valve regurgitation. Tricuspid Valve The tricuspid valve leaflets are normal. Pericardium/Pleural The pericardium appears normal. Aorta The aortic root size at the sinus of Valsalva is normal. Left Ventricular Outflow Tract Name Value Normal LVOT 2D LVOT Diameter 2.1 cm LVOT Doppler LVOT Peak Gradient 3 mmHg LVOT Mean Gradient 2 mmHg LVOT VTI 17 cm LVOT VTI/AV VTI Ratio 0.7 LVOT Stroke Volume 58 ml LVOT CO 13.6 l/min LVOT CI 6.3 l/min/m2 Pulmonic Valve Name Value Normal PV Doppler PV Peak Gradient 2 mmHg Mitral Valve Name Value Normal MV Doppler MV Decel [place] 157 cm/s2 MV PHT
[2021-12-27] MEDS: LEVOTHYROXINE SODIUM 50 MCG TABLET PO (05:46)
[2021-12-27 07:50] LABS: INR 1.5; Prothrombin Time 17.9 Seconds (11.1-14.7)
[2021-12-27 07:55] LABS: Glucose Point of Care 102 mg/dl (65-105)
[2021-12-27] MEDS: OMEGA 3 POLYUNSAT FATTY ACIDS 1 GM CAP 2 GM PO (08:33)
[2021-12-27] MEDS: EMPAGLIFLOZIN 10 MG TABLET PO (08:34)
[2021-12-27] MEDS: TAMSULOSIN HCL 0.4 MG CAPSULE PO (08:34)
[2021-12-27] MEDS: ATORVASTATIN 10 MG TABLET PO (08:34)
[2021-12-27] MEDS: LOSARTAN POTASSIUM 100 MG TABLET PO (08:34)
[2021-12-27] MEDS: allopurinoL 300 MG TABLET PO (08:34)
[2021-12-27] MEDS: amLODIPine BESYLATE 5 MG TABLET 10 MG PO (08:34)
[2021-12-27] MEDS: METOPROLOL SUCCINATE EXT REL 50 MG TABCR PO (08:34)
--- NOTE | 2021-12-27 09:48 | ECG_ITS ---
Measurements Intervals [place] Rate: 136 P: WI: 0 QRS: 24 QRSD: 110 T: -29 QT: 337 QTc: 507 Interpretive Statements ATRIAL FIBRILLATION WITH RAPID VENTRICULAR RESPONSE INTRAVENTRICULAR CONDUCTION DELAY CONSIDER ANTERIOR INFARCT, AGE INDETERMINATE CONSIDER INFERIOR INFARCT, AGE INDETERMINATE ABNORMAL ECG COMPARED TO ECG 12/25/2021 05:43:16 ATRIAL FIBRILLATION NOW PRESENT Electronically Signed On 12-27-2021 10:15:27 TAX PROCESSOR by Josafat Dempsey D.O.
[2021-12-27 09:53] LABS: Glucose Point of Care 168 mg/dl (65-105)
--- NOTE | 2021-12-27 10:00 | P.PNIM_ITS ---
Progress Note: A&P Assessment and Plan (1) COVID-19: Code(s): U07.1 - COVID-19 Status: Acute Assessment and Plan: Tested positive in the ed on 12/25/21. No supplemental O2 needs currently. * CXR shows no acute disease * IV Remdesivir and dexamethasone not indicated * Monitor respiratory status * Continue supportive care. (2) Fall: Qualifiers: Encounter type: initial encounter Qualified Code(s): W19.XXXA - Unspecified fall, initial encounter Code(s): W19.XXXA - Unspecified fall, initial encounter Status: Acute Assessment and Plan: reported ground level fall on admission. * PT and OT consulted and recommend SNF. Awaiting placement. * ambulate with assistance (3) General weakness: Code(s): R53.1 - Weakness Status: Acute Assessment and Plan: as above (4) Near syncope: Code(s): R55 - Syncope and collapse Status: Acute Assessment and Plan: Patient found slumped over in the chair. He was clammy and diaphoretic. Glucose 160s. check CBC, CMP, lactic acid, CRP, D-dimer, blood cultures x2, EKG, placed patient on telemetry. * CTA head and neck rule out acute stroke- no acute ischemia or bleeding noted. 0% ICA stenosis. * Likely secondary to orthostatic hypotension with poor cerebral perfusion.. Patient given stat 500 cc bolus IV X2. Orthostatics vitals ordered and pending. * neurochecks Q2 x2, then Q4 if stable. * Monitor glucose AC/HS * Transthoracic echocardiogram results pending. * lactic acid mildly elevated 2.2, normal WBC without shift. k 3.4 but electrolytes are otherwise unremarkable. Replace K with 60 mEQ wth goal >4. Magnesium >2 on 12/26/21. * Fall precautions. (5) Atrial fibrillation: Qualifiers: Atrial fibrillation type: unspecified Qualified Code(s): I48.91 - Unspecified atrial fibrillation Code(s): I48.91 - Unspecified atrial fibrillation Status: Chronic Assessment and Plan: Paroxysmal afib. Patient sinus rhythm 75 on admission. * continue warfarin for anticoagulation * continue amiodarone 200 mg Q48 hours and metoprolol with hold parameters. * follows with Dr. Jansen outpatient. * 12/27/21 patient with SBP 70s and EKG showed afib RVR 136 bpm. He has h/o afib. Given 2.5 mg IV metoprolol x1 and converted to SR 70-80s. BP improved with IV fluids and placing patient back in bed. * Check PT/INR daily - 12/27 INR 1.5, increase dose 10% to 7 mg daily (6) Type 2 diabetes mellitus with other diabetic kidney complication: Code(s): E11.29 - Type 2 diabetes mellitus with other diabetic kidney complication Status: Chronic Assessment and Plan: Chronic, stable. serum glucose 91. * hold home glimepiride * Continue Accu-Cheks a.c. HS, moderate dose aspart meal correction and hypoglycemia protocol * Bydureon not on formulary * Lantus 23 units at HS * Resume SGLT-2 empagliflozin formulary substitute started. (7) Hypothyroidism (acquired): Code(s): E03.9 - Hypothyroidism, unspecified Status: Acute Assessment and Plan: Chronic, stable. * continue home levothyroxine 50 mcg daily * TSH from 12/13/2021 3.840, T4 1.38 (8) Mixed hyperlipidemia: Code(s): E78.2 - Mixed hyperlipidemia Status: Chronic Assessment and Plan: Chronic, * cholesterol from 12/13/2021 showed 165, LDL 92, the LDL 32, HDL 41 * increase atorvastatin to 20 mg daily Plan CODE STATUS: FULL CODE Disposition: SNF placement. Fredo
--- NOTE | 2021-12-27 10:00 | PM.IMPN ---
Progress Note: A&P Assessment and Plan (1) COVID-19: Code(s): U07.1 - COVID-19 Status: Acute Assessment and Plan: Tested positive in the ed on 12/25/21. No supplemental O2 needs currently. CXR shows no acute disease IV Remdesivir and dexamethasone not indicated Monitor respiratory status Continue supportive care. (2) Fall: Qualifiers: Encounter type: initial encounter Qualified Code(s): W19.XXXA - Unspecified fall, initial encounter Code(s): W19.XXXA - Unspecified fall, initial encounter Status: Acute Assessment and Plan: reported ground level fall on admission. PT and OT consulted and recommend SNF. Awaiting placement. ambulate with assistance (3) General weakness: Code(s): R53.1 - Weakness Status: Acute Assessment and Plan: as above (4) Near syncope: Code(s): R55 - Syncope and collapse Status: Acute Assessment and Plan: Patient found slumped over in the chair. He was clammy and diaphoretic. Glucose 160s. check CBC, CMP, lactic acid, CRP, D-dimer, blood cultures x2, EKG, placed patient on telemetry. CTA head and neck rule out acute stroke- no acute ischemia or bleeding noted. 0% ICA stenosis. Likely secondary to orthostatic hypotension with poor cerebral perfusion.. Patient given stat 500 cc bolus IV X2. Orthostatics vitals ordered and pending. neurochecks Q2 x2, then Q4 if stable. Monitor glucose AC/HS Transthoracic echocardiogram results pending. lactic acid mildly elevated 2.2, normal WBC without shift. k 3.4 but electrolytes are otherwise unremarkable. Replace K with 60 mEQ wth goal >4. Magnesium >2 on 12/26/21. Fall precautions. (5) Atrial fibrillation: Qualifiers: Atrial fibrillation type: unspecified Qualified Code(s): I48.91 - Unspecified atrial fibrillation Code(s): I48.91 - Unspecified atrial fibrillation Status: Chronic Assessment and Plan: Paroxysmal afib. Patient sinus rhythm 75 on admission. continue warfarin for anticoagulation continue amiodarone 200 mg Q48 hours and metoprolol with hold parameters. follows with Dr. Jansen outpatient. 12/27/21 patient with SBP 70s and EKG showed afib RVR 136 bpm. He has h/o afib. Given 2.5 mg IV metoprolol x1 and converted to SR 70-80s. BP improved with IV fluids and placing patient back in bed. Check PT/INR daily - 12/27 INR 1.5, increase dose 10% to 7 mg daily (6) Type 2 diabetes mellitus with other diabetic kidney complication: Code(s): E11.29 - Type 2 diabetes mellitus with other diabetic kidney complication Status: Chronic Assessment and Plan: Chronic, stable. serum glucose 91. hold home glimepiride Continue Accu-Cheks a.c. HS, moderate dose aspart meal correction and hypoglycemia protocol Bydureon not on formulary Lantus 23 units at HS Resume SGLT-2 empagliflozin formulary substitute started. (7) Hypothyroidism (acquired): Code(s): E03.9 - Hypothyroidism, unspecified Status: Acute Assessment and Plan: Chronic, stable. continue home levothyroxine 50 mcg daily TSH from 12/13/2021 3.840, T4 1.38 (8) Mixed hyperlipidemia: Code(s): E78.2 - Mixed hyperlipidemia Status: Chronic Assessment and Plan: Chronic, cholesterol from 12/13/2021 showed 165, LDL 92, the LDL 32, HDL 41 increase atorvastatin to 20 mg daily Plan CODE STATUS: FULL CODE Disposition: SNF placement. Awaiting authorization Time Spent With Patient Time: critical care time 20 minutes Time with patient: 25 - 35 minutes Subjective Date/time seen: 12/27/21 10:00 I was contacted by the patient's RN at approximately 0950 for change in patient condition. He reportedly was talking on the phone with his who thought he sounded unlike himself and called the nurses station. The patient was sitting up in the chair and found to be diaphoretic and
[2021-12-27] MEDS: SODIUM CHLORIDE 0.9% IV 500 ML IV CONT ×2 (10:38→12:16)
[2021-12-27] MEDS: METOPROLOL TARTRATE INJ 5 MG/5 ML VIAL 2.5 MG IV PUSH (10:38)
[2021-12-27 10:48] LABS: Hematocrit 50.9 % (42.0-52.0); Hemoglobin 16.9 g/dL (14.0-18.0); Immature Platelet Fraction Pct 5.4 % (0.9-11.2); Mean Corpuscular HGB Conc 33.2 g/dl (32-36); Mean Corpuscular Hemoglobin 32.9 pg (26-34); Mean Platelet Volume 11.2 fl (7.4-10.4); Platelet Count Result 107 k/mm3 (150-375); Red Blood Count 5.14 M/mm3 (4.6-6.20); Red Cell Distribution Width 14.3 % (11.5-14.5); White Blood Count 5.8 K/mm3 (4.5-10.0)
[2021-12-27 11:02] LABS: Alanine Aminotransferase 49 U/L (6-50); Albumin Level 3.8 g/dL (3.5-5.1); Alkaline Phosphatase 54 U/L (38-126); Anion Gap 14 mmol/L (8-16); Aspartate Amino Transferase 53 U/L (17-59); Bilirubin,Total 0.8 mg/dL (0.2-1.3); Blood Urea Nitrogen 20 mg/dL (9-20); CRP 2.2 mg/dL (<1.0); Calcium 8.1 mg/dL (8.4-10.2); Carbon Dioxide 22 mmol/L (22-30); Chloride 103 mmol/L (98-107); Estimated Glomerular Filt Rate > 60; Glucose 135 mg/dL (65-110); Potassium 3.4 mmol/L (3.4-5.0); Sodium 139 mmol/L (137-145)
[2021-12-27 11:04] LABS: Lactic Acid Reflex 2.2 mmol/L (0.7-2.0)
[2021-12-27 11:35] LABS: D Dimer 0.52 ug/mL (<0.48)
[2021-12-27 11:40] LABS: Glucose Point of Care 143 mg/dl (65-105)
[2021-12-27 11:45] LABS: Troponin I 0.024 ng/mL (0.000-0.034)
[2021-12-27 13:41] LABS: Reflex Lactic Acid Yes or No Add Lactic
[2021-12-27] MEDS: THERAPEUTIC MULTIVITAMINS/MINERALS TAB (*BKC) 1 TABLET PO (14:01)
[2021-12-27 14:14] LABS: Lactic Acid 1.4 mmol/L (0.7-2.0)
[2021-12-27 16:31] LABS: Glucose Point of Care 207 mg/dl (65-105)
[2021-12-27] MEDS: WARFARIN (*PBKC) 2 MG, WARFARIN (*PBKC) 5 MG 7 MG PO (17:29)
[2021-12-27] MEDS: INSULIN ASPART (*BKC) 100 UNITS/ML SUB-Q (17:29)
--- NOTE | 2021-12-27 17:56 | PC.NURSE ---
At approximately 0940, I entered the patient's room where I found him sitting in the chair. Upon assessment, I noticed that the patient was drowsy, diaphoretic, and cool to the touch. The patient's mental status was altered from when I had been in the room about 30 minutes prior. I obtained vitals, a blood glucose level, and requested that Sandra Prakash, the hospitalist, come assess the patient. The next blood pressure reading showed that the patient was hypotensive at 71/52. We assisted the patient back to his bed. At the bedside, Sandra ordered a STAT EKG, labs, NS bolus, CT, neurological checks and telemetry monitoring. Once the patient was moved back to bed, he began to become more alert and was answering questions appropriately. After the NS bolus was finished, the patient's blood pressure was 116/79, but the heart rate was sustaining in the 130s-140s and showing a.fib rhythm on the night monitor. Sandra gave me orders for an additional NS bolus and 2.5mg of IVP metoprolol.
[2021-12-27] MEDS: POTASSIUM CHLORIDE 20 MEQ TABLET 60 MEQ PO (18:51)
[2021-12-27] MEDS: FINASTERIDE 5 MG TABLET PO (20:40)
[2021-12-27] MEDS: INSULIN GLARGINE (*BKC) 100 UNITS/ML 23 UNITS SUB-Q (20:45)
[2021-12-27 20:54] LABS: Glucose Point of Care 173 mg/dl (65-105)
[2021-12-28] VITALS (12 sets, daily range): BP systolic 103–148; BP diastolic 60–77; PULSE 66–77; RESP 14–20; TEMP 35.7–36.8; O2SAT 90–96
[2021-12-28] MEDS: LEVOTHYROXINE SODIUM 50 MCG TABLET PO (05:43)
[2021-12-28 07:37] LABS: Hematocrit 47.2 % (42.0-52.0); Immature Platelet Fraction Pct 5.6 % (0.9-11.2); Mean Corpuscular HGB Conc 33.9 g/dl (32-36); Mean Corpuscular Hemoglobin 32.5 pg (26-34); Mean Corpuscular Volume 95.7 fl (80-100); Mean Platelet Volume 11.4 fl (7.4-10.4); Platelet Count Result 97 k/mm3 (150-375); Red Blood Count 4.93 M/mm3 (4.6-6.20); Red Cell Distribution Width 14.2 % (11.5-14.5); White Blood Count 5.8 K/mm3 (4.5-10.0)
[2021-12-28 08:51] LABS: Glucose Point of Care 102 mg/dl (65-105)
[2021-12-28 09:18] LABS: Anion Gap 14 mmol/L (8-16); Blood Urea Nitrogen 14 mg/dL (9-20); Calcium 8.1 mg/dL (8.4-10.2); Carbon Dioxide 24 mmol/L (22-30); Chloride 103 mmol/L (98-107); Estimated Glomerular Filt Rate > 60; Glucose 85 mg/dL (65-110); Magnesium 1.8 mg/dL (1.6-2.3); Sodium 141 mmol/L (137-145)
[2021-12-28] MEDS: AMIODARONE HCL 200 MG TABLET PO (10:23)
[2021-12-28] MEDS: LOSARTAN POTASSIUM 50 MG TABLET PO (10:24)
[2021-12-28] MEDS: OMEGA 3 POLYUNSAT FATTY ACIDS 1 GM CAP 2 GM PO (10:24)
[2021-12-28] MEDS: METOPROLOL SUCCINATE EXT REL 50 MG TABCR PO (10:24)
[2021-12-28] MEDS: TAMSULOSIN HCL 0.4 MG CAPSULE PO (10:24)
[2021-12-28] MEDS: amLODIPine BESYLATE 5 MG TABLET 10 MG PO (10:24)
[2021-12-28] MEDS: allopurinoL 300 MG TABLET PO (10:24)
[2021-12-28] MEDS: ATORVASTATIN 10 MG TABLET PO (10:26)
[2021-12-28] MEDS: MAGNESIUM SULF 2 GM/WATER 50ML 2 GM/50 ML BAG IVPB (10:30)
[2021-12-28] MEDS: POTASSIUM CHLORIDE 20 MEQ TABLET 60 MEQ PO (10:30)
[2021-12-28 11:53] LABS: Glucose Point of Care 207 mg/dl (65-105)
[2021-12-28] MEDS: INSULIN ASPART (*BKC) 100 UNITS/ML SUB-Q (11:59)
[2021-12-28] MEDS: THERAPEUTIC MULTIVITAMINS/MINERALS TAB (*BKC) 1 TABLET PO (12:00)
[2021-12-28 14:10] LABS: Appearance Urine Clear (Clear); Bilirubin Urine Negative (Negative); Blood Urine Negative (Negative); Color Urine Yellow (Yellow); Glucose Urine UA 3+ mg/dL (Negative); Ketones Urine Negative (Negative); Leukocyte Esterase Ur Negative LEU/UL (Negative); Nitrate Urine Negative (Negative); Protein Urine Negative (Negative); Specific Grav Ur 1.015 (1.001-1.035); Urobilinogen Urine 0.2 mg/dL (<2.0); pH Urine 6.5 (5.0-9.0)
[2021-12-28 14:25] LABS: RBC Urine 0-2 /hpf (0-2); WBC Urine 0-3 /hpf
[2021-12-28 14:43] LABS: Add Urine Microscopic? YES
--- NOTE | 2021-12-28 14:49 | PM.IMPN ---
Progress Note: A&P Assessment and Plan (1) COVID-19: Code(s): U07.1 - COVID-19 Status: Acute Assessment and Plan: Tested positive in the ed on 12/25/21. No supplemental O2 needs currently. CXR shows no acute disease IV Remdesivir and dexamethasone not indicated Monitor respiratory status Continue supportive care. 12/28 chest x-ray shows bilateral opacities suggestive of atelectasis versus pneumonia. He has no respiratory complaints, supplemental oxygen needs, or sputum. Initiate incentive spirometry for atelectasis. (2) Fall: Qualifiers: Encounter type: initial encounter Qualified Code(s): W19.XXXA - Unspecified fall, initial encounter Code(s): W19.XXXA - Unspecified fall, initial encounter Status: Acute Assessment and Plan: reported ground level fall on admission. PT and OT consulted. Patient's is off COVID isolation with improving strength and plans to take patient home ambulate with assistance (3) General weakness: Code(s): R53.1 - Weakness Status: Acute Assessment and Plan: as above (4) Near syncope: Code(s): R55 - Syncope and collapse Status: Acute Assessment and Plan: Patient found slumped over in the chair. He was clammy and diaphoretic. Glucose 160s. check CBC, CMP, lactic acid, CRP, D-dimer, blood cultures x2, EKG, placed patient on telemetry. CTA head and neck rule out acute stroke- no acute ischemia or bleeding noted. 0% ICA stenosis. Likely secondary to orthostatic hypotension with poor cerebral perfusion.. Patient given stat 500 cc bolus IV X2. Orthostatics vitals ordered and pending. neurochecks Q2 x2, then Q4 if stable. Monitor glucose AC/HS Transthoracic echocardiogram shows normal left ventricular size with severe LVH, hydrate hyperdynamic systolic function with grade 2 diastolic dysfunction dilated left atrium and trivial mitral regurgitation lactic acid mildly elevated 2.2, normal WBC without shift. k 3.4 but electrolytes are otherwise unremarkable. Replace K with 60 mEQ wth goal >4. Magnesium >2 on 12/26/21. Fall precautions. 12/28 repeat orthostatic vitals negative. Blood cultures appear positive but etiology of acute infection is unknown,?Contaminant however the organism is in both bottles therefore vancomycin was added IV for Gram-positive cocci in clusters (5) Atrial fibrillation: Qualifiers: Atrial fibrillation type: unspecified Qualified Code(s): I48.91 - Unspecified atrial fibrillation Code(s): I48.91 - Unspecified atrial fibrillation Status: Chronic Assessment and Plan: Paroxysmal afib. Patient sinus rhythm 75 on admission. continue warfarin for anticoagulation continue amiodarone 200 mg Q48 hours and metoprolol with hold parameters. follows with Dr. Jansen outpatient. 12/27/21 patient with SBP 70s and EKG showed afib RVR 136 bpm. He has h/o afib. Given 2.5 mg IV metoprolol x1 and converted to SR 70-80s. BP improved with IV fluids and placing patient back in bed. Check PT/INR daily - 12/27 INR 1.5, increase dose 10% to 7 mg daily 12/28 patient is running normal sinus rhythm with frequent PVCs on telemetry. Magnesium level 1.8 and potassium 3. Give Mag sulfate 2 g IV x1 potassium chloride 60 mEq p.o. x1 with goal Mag greater than 2 and potassium greater than 4 (6) Type 2 diabetes mellitus with other diabetic kidney complication: Code(s): E11.29 - Type 2 diabetes mellitus with other diabetic kidney complication Status: Chronic Assessment and Plan: Chronic, stable. serum glucose 91. hold home glimepiride Continue Accu-Cheks a.c. HS, moderate dose aspart meal correction and hypoglycemia protocol Bydureon not on formulary Lantus 23 units at HS patient reports he is no longer taking Jardiance psis medication was stopped. Fasting glucose 85 today 12/28 (7) Hypothyroidism (acquired): Code(s): E03
[2021-12-28] MEDS: WARFARIN (*PBKC) 2 MG, WARFARIN (*PBKC) 5 MG 7 MG PO (17:16)
[2021-12-28] MEDS: BENZONATATE 100 MG CAPSULE PO (17:16)
[2021-12-28 17:35] LABS: Glucose Point of Care 109 mg/dl (65-105)
[2021-12-28 20:06] LABS: Glucose Point of Care 140 mg/dl (65-105)
[2021-12-28] MEDS: SENNA/DOCUSATE SODIUM TABLET 2 TAB PO (20:54)
[2021-12-28] MEDS: FINASTERIDE 5 MG TABLET PO (20:54)
[2021-12-28] MEDS: guaiFENesin 12 HR 600 MG TABCR PO (20:54)
[2021-12-28] MEDS: INSULIN GLARGINE (*BKC) 100 UNITS/ML 23 UNITS SUB-Q (20:55)
[2021-12-29] VITALS (10 sets, daily range): BP systolic 108–159; BP diastolic 58–81; PULSE 60–73; RESP 14–16; TEMP 35.9–36.4; O2SAT 92–96
[2021-12-29] MEDS: LEVOTHYROXINE SODIUM 50 MCG TABLET PO (05:33)
[2021-12-29 07:29] LABS: Basophils Percent Auto 0.2 % (0.2-1.2); Eosinophils Absolute Auto 0.1 K/mm3 (0-0.3); Eosinophils Percent Auto 2.2 % (0-4.4); Hematocrit 49.5 % (42.0-52.0); Hemoglobin 16.5 g/dL (14.0-18.0); Immature Granulocyte Absolute 0.01 K/mm3 (0.00-0.031); Immature Granulocyte Percent A 0.2 % (0-0.5); Immature Platelet Fraction Pct 5.5 % (0.9-11.2); Lymphocytes Absolute Auto 1.49 K/mm3 (0.9-3.2); Lymphocytes Percent Auto 33.3 % (18.3-44.2); Mean Corpuscular HGB Conc 33.3 g/dl (32-36); Mean Corpuscular Hemoglobin 32.8 pg (26-34); Mean Corpuscular Volume 98.4 fl (80-100); Mean Platelet Volume 10.7 fl (7.4-10.4); Monocytes Absolute Auto 0.6 K/mm3 (0.1-0.6); Monocytes Percent Auto 13.4 % (2.6-8.5); Neutrophils Absolute Auto 2.3 K/mm3 (1.3-6.7); Neutrophils Percent Auto 50.7 % (45.5-73.1); Platelet Count Result 107 k/mm3 (150-375); Red Blood Count 5.03 M/mm3 (4.6-6.20); Red Cell Distribution Width 13.9 % (11.5-14.5); White Blood Count 4.5 K/mm3 (4.5-10.0)
[2021-12-29 07:41] LABS: Alanine Aminotransferase 111 U/L (6-50); Alkaline Phosphatase 58 U/L (38-126); Anion Gap 9 mmol/L (8-16); Aspartate Amino Transferase 98 U/L (17-59); Blood Urea Nitrogen 12 mg/dL (9-20); Calcium 8.3 mg/dL (8.4-10.2); Carbon Dioxide 28 mmol/L (22-30); Chloride 103 mmol/L (98-107); Estimated Glomerular Filt Rate > 60; Glucose 149 mg/dL (65-110); Potassium 3.8 mmol/L (3.4-5.0); Sodium 140 mmol/L (137-145)
[2021-12-29 08:30] LABS: INR 1.5
[2021-12-29 09:00] LABS: Glucose Point of Care 100 mg/dl (65-105)
[2021-12-29 09:36] LABS: Base Excess ABG 1.3 mEq/l (+/-2.0); Carboxyhemoglobin 0.6 % THb (0-2.0); Fractional Inspired Oxygen 21 %; HCO3 ABG 24.1 mEq/l (22.0-26.0); Methemoglobin ABG 0.4 %THb (0-1.5); Modified Allen's Test Pass; Oxygen Content ABG 22.8 %vol (16.0-22.0); Oxygen Saturation ABG 93.7 % (95.0-100.0); PCO2 ABG 33.7 mmHg (35.0-45.0); PO2 ABG 63.4 mmHg (80.0-100.0); PO2 FiO2 Ratio Arterial Blood 3.02 %; Site Drawn LEFT RADIAL; Total Hemoglobin 17.7 g/dL (12.0-18.0); pH ABG 7.472 (7.350-7.450)
[2021-12-29 09:37] LABS: Device ROOM AIR
[2021-12-29] MEDS: OMEGA 3 POLYUNSAT FATTY ACIDS 1 GM CAP 2 GM PO (09:42)
[2021-12-29] MEDS: METOPROLOL SUCCINATE EXT REL 50 MG TABCR PO (09:42)
[2021-12-29] MEDS: amLODIPine BESYLATE 5 MG TABLET 10 MG PO (09:42)
[2021-12-29] MEDS: allopurinoL 300 MG TABLET PO (09:44)
[2021-12-29] MEDS: BENZONATATE 100 MG CAPSULE PO (09:44)
[2021-12-29] MEDS: ATORVASTATIN 10 MG TABLET PO (09:44)
[2021-12-29] MEDS: LOSARTAN POTASSIUM 50 MG TABLET PO (09:44)
[2021-12-29] MEDS: guaiFENesin 12 HR 600 MG TABCR PO ×2 (09:44→20:59)
[2021-12-29] MEDS: TAMSULOSIN HCL 0.4 MG CAPSULE PO (09:45)
--- NOTE | 2021-12-29 10:39 | PC.NURSE ---
When I entered pt's room at approximately 0945, which is under droplet precautions, pt was in the bed with side rails down, alarm off, and bed raised to my chest height (approximately 4ft up). Pt was moving around because he stated he needed to urinate and was already going in the bed. The bed was pulled away from the way and was cockeyed. The trash can which pt's urinal was hanging from was about 6 feet away from the bed. The bedside table was on the other side of the room. Pt's glasses were on the floor behind the bed next to the wheel of the bed and one of the lens was popped out of the glasses. The house phone base was in the bed with pt but the cigarette roller was wrapped around the bed wheel and under the bed. There was trash (alcohol wipes and wrappers, syringe caps, et al.) all around the floor of the bed as well as in the bed with pt. Charge nurse made aware of the safety risks and condition of the room.
[2021-12-29 11:59] LABS: Glucose Point of Care 216 mg/dl (65-105)
[2021-12-29] MEDS: INSULIN ASPART (*BKC) 100 UNITS/ML SUB-Q (12:06)
[2021-12-29] MEDS: THERAPEUTIC MULTIVITAMINS/MINERALS TAB (*BKC) 1 TABLET PO (12:06)
[2021-12-29 13:30] LABS: Hepatitis B Surface Antigen Negative (Negative)
[2021-12-29 13:36] LABS: HAV RESULT Negative (Negative); Hepatitis B Core IgM Result Negative (Negative)
[2021-12-29 13:48] LABS: Hepatitis C Virus Antibody Negative (Negative)
--- NOTE | 2021-12-29 16:12 | P.PNIM_ITS ---
Progress Note: A&P Assessment and Plan (1) COVID-19: Code(s): U07.1 - COVID-19 Status: Acute Assessment and Plan: Tested positive in the ed on 12/25/21. No supplemental O2 needs currently. * CXR shows no acute disease * IV Remdesivir and dexamethasone not indicated * Monitor respiratory status * Continue supportive care. * 12/28 chest x-ray shows bilateral opacities suggestive of atelectasis versus pneumonia. He has no respiratory complaints, supplemental oxygen needs, or sputum. Initiate incentive spirometry for atelectasis. * 12/29 SpO2 94% on room air patient denies respiratory complaints. Continue supportive care. Patient tested positive on 12/25/2021 and is day 5 of isolation (2) Fall: Qualifiers: Encounter type: initial encounter Qualified Code(s): W19.XXXA - Unspecified fall, initial encounter Code(s): W19.XXXA - Unspecified fall, initial encounter Status: Acute Assessment and Plan: reported ground level fall on admission. * PT and OT consulted. * Patient's is off COVID isolation with improving strength and plans to take patient home * ambulate with assistance (3) General weakness: Code(s): R53.1 - Weakness Status: Acute Assessment and Plan: as above. Improving (4) Near syncope: Code(s): R55 - Syncope and collapse Status: Acute Assessment and Plan: Patient found slumped over in the chair. He was clammy and diaphoretic. Glucose 160s. check CBC, CMP, lactic acid, CRP, D-dimer, blood cultures x2, EKG, placed patient on telemetry. * CTA head and neck rule out acute stroke- no acute ischemia or bleeding noted. 0% ICA stenosis. * Likely secondary to orthostatic hypotension with poor cerebral perfusion.. Patient given stat 500 cc bolus IV X2. Orthostatics vitals ordered and pending. * neurochecks Q2 x2, then Q4 if stable. * Monitor glucose AC/HS * Transthoracic echocardiogram shows normal left ventricular size with severe LVH, hydrate hyperdynamic systolic function with grade 2 diastolic dysfunction dilated left atrium and trivial mitral regurgitation * lactic acid mildly elevated 2.2, normal WBC without shift. k 3.4 but electrolytes are otherwise unremarkable. Replace K with 60 mEQ wth goal >4. Magnesium >2 on 12/26/21. * Fall precautions. * 12/28 repeat orthostatic vitals negative. Blood cultures appear positive but etiology of acute infection is unknown,?Contaminant however the organism is in both bottles therefore vancomycin was added IV for Gram-positive cocci in clusters * Stable. No dizziness (5) Atrial fibrillation: Qualifiers: Atrial fibrillation type: unspecified Qualified Code(s): I48.91 - Unspecified atrial fibrillation Code(s): I48.91 - Unspecified atrial fibrillation Status: Chronic Assessment and Plan: Paroxysmal afib. Patient sinus rhythm 75 on admission. * continue warfarin for anticoagulation * continue amiodarone 200 mg Q48 hours and metoprolol with hold parameters. * follows with Dr. Jansen outpatient. * 12/27/21 patient with SBP 70s and EKG showed afib RVR 136 bpm. He has h/o afib. Given 2.5 mg IV metoprolol x1 and converted to SR 70-80s. BP improved with IV fluids and placing patient back in bed. * Check PT/INR daily - 12/27 INR 1.5, increase dose 10% to 7 mg daily * 12/28 patient is running normal sinus rhythm with frequent PVCs on telemetry. Magnesium level 1.8 and potassium 3. Give Mag sulfate 2 g IV x1 potassium chloride 60 mEq p.o. x1 with goal Mag greater than 2 and potassium greater t
--- NOTE | 2021-12-29 16:12 | PM.IMPN ---
Progress Note: A&P Assessment and Plan (1) COVID-19: Code(s): U07.1 - COVID-19 Status: Acute Assessment and Plan: Tested positive in the ed on 12/25/21. No supplemental O2 needs currently. CXR shows no acute disease IV Remdesivir and dexamethasone not indicated Monitor respiratory status Continue supportive care. 12/28 chest x-ray shows bilateral opacities suggestive of atelectasis versus pneumonia. He has no respiratory complaints, supplemental oxygen needs, or sputum. Initiate incentive spirometry for atelectasis. 12/29 SpO2 94% on room air patient denies respiratory complaints. Continue supportive care. Patient tested positive on 12/25/2021 and is day 5 of isolation (2) Fall: Qualifiers: Encounter type: initial encounter Qualified Code(s): W19.XXXA - Unspecified fall, initial encounter Code(s): W19.XXXA - Unspecified fall, initial encounter Status: Acute Assessment and Plan: reported ground level fall on admission. PT and OT consulted. Patient's is off COVID isolation with improving strength and plans to take patient home ambulate with assistance (3) General weakness: Code(s): R53.1 - Weakness Status: Acute Assessment and Plan: as above. Improving (4) Near syncope: Code(s): R55 - Syncope and collapse Status: Acute Assessment and Plan: Patient found slumped over in the chair. He was clammy and diaphoretic. Glucose 160s. check CBC, CMP, lactic acid, CRP, D-dimer, blood cultures x2, EKG, placed patient on telemetry. CTA head and neck rule out acute stroke- no acute ischemia or bleeding noted. 0% ICA stenosis. Likely secondary to orthostatic hypotension with poor cerebral perfusion.. Patient given stat 500 cc bolus IV X2. Orthostatics vitals ordered and pending. neurochecks Q2 x2, then Q4 if stable. Monitor glucose AC/HS Transthoracic echocardiogram shows normal left ventricular size with severe LVH, hydrate hyperdynamic systolic function with grade 2 diastolic dysfunction dilated left atrium and trivial mitral regurgitation lactic acid mildly elevated 2.2, normal WBC without shift. k 3.4 but electrolytes are otherwise unremarkable. Replace K with 60 mEQ wth goal >4. Magnesium >2 on 12/26/21. Fall precautions. 12/28 repeat orthostatic vitals negative. Blood cultures appear positive but etiology of acute infection is unknown,?Contaminant however the organism is in both bottles therefore vancomycin was added IV for Gram-positive cocci in clusters Stable. No dizziness (5) Atrial fibrillation: Qualifiers: Atrial fibrillation type: unspecified Qualified Code(s): I48.91 - Unspecified atrial fibrillation Code(s): I48.91 - Unspecified atrial fibrillation Status: Chronic Assessment and Plan: Paroxysmal afib. Patient sinus rhythm 75 on admission. continue warfarin for anticoagulation continue amiodarone 200 mg Q48 hours and metoprolol with hold parameters. follows with Dr. Jansen outpatient. 12/27/21 patient with SBP 70s and EKG showed afib RVR 136 bpm. He has h/o afib. Given 2.5 mg IV metoprolol x1 and converted to SR 70-80s. BP improved with IV fluids and placing patient back in bed. Check PT/INR daily - 12/27 INR 1.5, increase dose 10% to 7 mg daily 12/28 patient is running normal sinus rhythm with frequent PVCs on telemetry. Magnesium level 1.8 and potassium 3. Give Mag sulfate 2 g IV x1 potassium chloride 60 mEq p.o. x1 with goal Mag greater than 2 and potassium greater than 4 Resolved. Patient is normal sinus rhythm on telemetry with occasional PVCs (6) Type 2 diabetes mellitus with other diabetic kidney complication: Code(s): E11.29 - Type 2 diabetes mellitus with other diabetic kidney complication Status: Chronic Assessment and Plan: Chronic, stable. serum glucose 91. hold home glimepiride Continue Accu-Cheks a.c. HS, moderate dose
[2021-12-29 16:40] LABS: Glucose Point of Care 119 mg/dl (65-105)
[2021-12-29] MEDS: WARFARIN (*PBKC) 2 MG, WARFARIN (*PBKC) 5 MG 7 MG PO (17:01)
[2021-12-29] MEDS: FINASTERIDE 5 MG TABLET PO (20:59)
[2021-12-29] MEDS: SENNA/DOCUSATE SODIUM TABLET 2 TAB PO (20:59)
[2021-12-29] MEDS: INSULIN GLARGINE (*BKC) 100 UNITS/ML 23 UNITS SUB-Q (21:00)
[2021-12-29 21:13] LABS: Glucose Point of Care 322 mg/dl (65-105)
[2021-12-30 04:00] VITALS: BP 111/54; PULSE 64; RESP 14; TEMP 36.1; O2SAT 91
[2021-12-30 05:53] LABS: Basophils Percent Auto 0.4 % (0.2-1.2); Eosinophils Absolute Auto 0.2 K/mm3 (0-0.3); Hematocrit 47.9 % (42.0-52.0); Hemoglobin 16.2 g/dL (14.0-18.0); Immature Granulocyte Absolute 0.01 K/mm3 (0.00-0.031); Immature Granulocyte Percent A 0.2 % (0-0.5); Immature Platelet Fraction Pct 5.4 % (0.9-11.2); Lymphocytes Absolute Auto 1.81 K/mm3 (0.9-3.2); Mean Corpuscular HGB Conc 33.8 g/dl (32-36); Mean Corpuscular Hemoglobin 32.7 pg (26-34); Mean Corpuscular Volume 96.8 fl (80-100); Mean Platelet Volume 11.4 fl (7.4-10.4); Monocytes Absolute Auto 0.6 K/mm3 (0.1-0.6); Monocytes Percent Auto 12.5 % (2.6-8.5); Neutrophils Absolute Auto 2.4 K/mm3 (1.3-6.7); Neutrophils Percent Auto 47.9 % (45.5-73.1); Platelet Count Result 108 k/mm3 (150-375); Red Blood Count 4.95 M/mm3 (4.6-6.20); Red Cell Distribution Width 13.9 % (11.5-14.5)
[2021-12-30 05:55] LABS: Alanine Aminotransferase 145 U/L (6-50); Albumin Level 3.8 g/dL (3.5-5.1); Alkaline Phosphatase 56 U/L (38-126); Anion Gap 8 mmol/L (8-16); Aspartate Amino Transferase 112 U/L (17-59); Bilirubin,Total 0.9 mg/dL (0.2-1.3); Blood Urea Nitrogen 16 mg/dL (9-20); Calcium 8.4 mg/dL (8.4-10.2); Carbon Dioxide 26 mmol/L (22-30); Chloride 104 mmol/L (98-107); Estimated Glomerular Filt Rate > 60; Glucose 115 mg/dL (65-110); Potassium 3.3 mmol/L (3.4-5.0); Sodium 138 mmol/L (137-145)
[2021-12-30] MEDS: LEVOTHYROXINE SODIUM 50 MCG TABLET PO (06:33)
[2021-12-30 08:00] VITALS: BP 150/84; PULSE 70; RESP 16; TEMP 36.4; O2SAT 96
[2021-12-30 08:01] LABS: Glucose Point of Care 124 mg/dl (65-105)
[2021-12-30 08:12] VITALS: PULSE 64
[2021-12-30] MEDS: METOPROLOL SUCCINATE EXT REL 50 MG TABCR PO (08:12)
[2021-12-30] MEDS: BENZONATATE 100 MG CAPSULE PO (08:12)
[2021-12-30] MEDS: allopurinoL 300 MG TABLET PO (08:13)
[2021-12-30 08:14] VITALS: PULSE 64
[2021-12-30] MEDS: AMIODARONE HCL 200 MG TABLET PO (08:14)
[2021-12-30] MEDS: LOSARTAN POTASSIUM 50 MG TABLET PO (08:14)
[2021-12-30] MEDS: guaiFENesin 12 HR 600 MG TABCR PO (08:14)
[2021-12-30] MEDS: amLODIPine BESYLATE 5 MG TABLET 10 MG PO (08:14)
[2021-12-30] MEDS: OMEGA 3 POLYUNSAT FATTY ACIDS 1 GM CAP 2 GM PO (08:14)
[2021-12-30] MEDS: TAMSULOSIN HCL 0.4 MG CAPSULE PO (08:14)
[2021-12-30] MEDS: ATORVASTATIN 10 MG TABLET PO (08:14)
[2021-12-30] MEDS: POTASSIUM CHLORIDE 20 MEQ TABLET 60 MEQ PO (09:58)
[2021-12-30 11:32] LABS: Glucose Point of Care 155 mg/dl (65-105)
--- NOTE | 2021-12-30 11:39 | P.DS_ITS ---
DS: Admitting Diagnosis Discharge Date 12/30/21 1140 Admitting Diagnosis COVID19 mechanical fall generalized weakness DS: Discharge Diagnosis Discharge Diagnosis (1) COVID-19: Code(s): U07.1 - COVID-19 Status: Acute Assessment and Plan: Tested positive in the ed on 12/25/21. No supplemental O2 needed during hospital stay. * CXR showed no acute disease * IV Remdesivir and dexamethasone not indicated and held * Continue supportive care with mucolytics and analgesics given. * 12/28 chest x-ray showed bilateral opacities suggestive of atelectasis versus pneumonia. * He had no respiratory complaints, supplemental oxygen needs, or sputum production. He was treated with incentive spirometry for atelectasis. Lung sounds were clear bilaterally. (2) Fall: Qualifiers: Encounter type: initial encounter Qualified Code(s): W19.XXXA - Unspecified fall, initial encounter Code(s): W19.XXXA - Unspecified fall, initial encounter Status: Acute Assessment and Plan: reported ground level fall on admission. * PT and OT consulted and plans were originally for him to be placed at SNF rehab, however, the patient's 's condition improved and he then wanted to be discharged home with his spouse and home health. * Fall precautions were instituted. (3) General weakness: Code(s): R53.1 - Weakness Status: Acute Assessment and Plan: Secondary to COVID19. PT/OT consulted and patient's weakness improved. (4) Near syncope: Code(s): R55 - Syncope and collapse Status: Acute Assessment and Plan: ON 12/28/21 Patient was found slumped over in the chair. He was clammy and diaphoretic. Glucose 160s. BP 70/40s. EKG afib RVR 136. * CTA head and neck rule out acute stroke- no acute ischemia or bleeding noted. 0% ICA stenosis. * Likely secondary to orthostatic hypotension with poor cerebral perfusion and refractory afib RVR. Patient was given stat 500 cc bolus IV X2. Orthostatics vitals ordered and negative following fluid administration. Antihypertensives were adjusted but later resumed at home doses when BP returned to baseline prior to discharge. * neuro assessment remained at baseline following improvement in blood pressure. * Transthoracic echocardiogram shows normal left ventricular size with severe LVH, hyperdynamic systolic function with grade 2 diastolic dysfunction dilated left atrium and trivial mitral regurgitation * 12/28 lactic acid mildly elevated 2.2, normal WBC without shift. k 3.4 but electrolytes are otherwise unremarkable. Replaced K with 60 mEQ wth goal >4. Magnesium >2 on 12/26/21. * D-dimer negative when adjusted for age. * ABG with mild hypoxemia PaO2 64, with oxyhemoglobin 93%. pH and pCO2 stable. * UA negative. * CRP 2.2 and likely increased secondary to COVID19. * 12/28 Blood cultures appear positive but etiology of acute infection is unknown,?Contaminant versus true infection. No bacteremia source identified. * Resolved by discharge. (5) Atrial fibrillation: Qualifiers: Atrial fibrillation type: unspecified Qualified Code(s): I48.91 - Uns pecified atrial fibrillation Code(s): I48.91 - Unspecified atrial fibrillation Status: Chronic Assessment and Plan: Paroxysmal afib. Patient sinus rhythm 75 on admission. * continue warfarin for anticoagulation * continue amiodarone 200 mg Q48 hours and metoprolol with hold parameters. * follows with Dr. Jansen outpatient. * 12/27/21 patient with SBP 70s and EKG showed afib RVR 136 b
--- NOTE | 2021-12-30 11:39 | PM.DS ---
DS: Admitting Diagnosis Discharge Date 12/30/21 1140 Admitting Diagnosis COVID19 mechanical fall generalized weakness DS: Discharge Diagnosis Discharge Diagnosis (1) COVID-19: Code(s): U07.1 - COVID-19 Status: Acute Assessment and Plan: Tested positive in the ed on 12/25/21. No supplemental O2 needed during hospital stay. CXR showed no acute disease IV Remdesivir and dexamethasone not indicated and held Continue supportive care with mucolytics and analgesics given. 12/28 chest x-ray showed bilateral opacities suggestive of atelectasis versus pneumonia. He had no respiratory complaints, supplemental oxygen needs, or sputum production. He was treated with incentive spirometry for atelectasis. Lung sounds were clear bilaterally. (2) Fall: Qualifiers: Encounter type: initial encounter Qualified Code(s): W19.XXXA - Unspecified fall, initial encounter Code(s): W19.XXXA - Unspecified fall, initial encounter Status: Acute Assessment and Plan: reported ground level fall on admission. PT and OT consulted and plans were originally for him to be placed at SNF rehab, however, the patient's 's condition improved and he then wanted to be discharged home with his spouse and home health. Fall precautions were instituted. (3) General weakness: Code(s): R53.1 - Weakness Status: Acute Assessment and Plan: Secondary to COVID19. PT/OT consulted and patient's weakness improved. (4) Near syncope: Code(s): R55 - Syncope and collapse Status: Acute Assessment and Plan: ON 12/28/21 Patient was found slumped over in the chair. He was clammy and diaphoretic. Glucose 160s. BP 70/40s. EKG afib RVR 136. CTA head and neck rule out acute stroke- no acute ischemia or bleeding noted. 0% ICA stenosis. Likely secondary to orthostatic hypotension with poor cerebral perfusion and refractory afib RVR. Patient was given stat 500 cc bolus IV X2. Orthostatics vitals ordered and negative following fluid administration. Antihypertensives were adjusted but later resumed at home doses when BP returned to baseline prior to discharge. neuro assessment remained at baseline following improvement in blood pressure. Transthoracic echocardiogram shows normal left ventricular size with severe LVH, hyperdynamic systolic function with grade 2 diastolic dysfunction dilated left atrium and trivial mitral regurgitation 12/28 lactic acid mildly elevated 2.2, normal WBC without shift. k 3.4 but electrolytes are otherwise unremarkable. Replaced K with 60 mEQ wth goal >4. Magnesium >2 on 12/26/21. D-dimer negative when adjusted for age. ABG with mild hypoxemia PaO2 64, with oxyhemoglobin 93%. pH and pCO2 stable. UA negative. CRP 2.2 and likely increased secondary to COVID19. 12/28 Blood cultures appear positive but etiology of acute infection is unknown,?Contaminant versus true infection. No bacteremia source identified. Resolved by discharge. (5) Atrial fibrillation: Qualifiers: Atrial fibrillation type: unspecified Qualified Code(s): I48.91 - Unspecified atrial fibrillation Code(s): I48.91 - Unspecified atrial fibrillation Status: Chronic Assessment and Plan: Paroxysmal afib. Patient sinus rhythm 75 on admission. continue warfarin for anticoagulation continue amiodarone 200 mg Q48 hours and metoprolol with hold parameters. follows with Dr. Jansen outpatient. 12/27/21 patient with SBP 70s and EKG showed afib RVR 136 bpm. He has h/o afib. Given 2.5 mg IV metoprolol x1 and converted to SR 70-80s. BP improved with IV fluids and placing patient back in bed. 12/27 INR 1.5, increase dose 10% to 7 mg daily 12/28 patient is running normal sinus rhythm with frequent PVCs on telemetry. Magnesium level 1.8 and potassium 3. Given Mag sulfate 2 g IV x1 potassium chloride 60 mEq p.o. x1 with goal Mag greater than 2 and potassiu
[2021-12-30 12:00] VITALS: BP 140/90; PULSE 64; RESP 16; TEMP 36.4; O2SAT 94
[2021-12-30] MEDS: THERAPEUTIC MULTIVITAMINS/MINERALS TAB (*BKC) 1 TABLET PO (12:04)
== END 2021-12-30 13:18 | disposition home health service (06) | DRG 179 ==
LOC: ANHED 08:41 → ANH3MEDSUR 12:04
PROVIDERS: Nurse Practitioner; Nurse Practitioner Family; Preventive Medicine Aerospace Medicine; Admitting Provider Family Medicine; Emergency Provider Emergency Medicine; PCP Family Medicine; Visit Provider Family Medicine
DX: U07.1 COVID-19 (principal); E03.9 Hypothyroidism, unspecified; E78.2 Mixed hyperlipidemia; I48.0 Paroxysmal atrial fibrillation; Z79.01 Long term (current) use of anticoagulants; H35.30 Unspecified macular degeneration; I95.1 Orthostatic hypotension; E11.22 Type 2 diabetes mellitus with diabetic chronic kidney disease; I12.9 Hypertensive chronic kidney disease with stage 1 through stage 4 chronic kidney disease, or unspecified chronic kidney disease; N18.30 Chronic kidney disease, stage 3 unspecified; Z82.49 Family history of ischemic heart disease and other diseases of the circulatory system; Z83.3 Family history of diabetes mellitus; Z79.4 Long term (current) use of insulin; Z79.899 Other long term (current) drug therapy; Z88.2 Allergy status to sulfonamides; W17.89XA Other fall from one level to another, initial encounter
CPT/HCPCS: 36415; 36600; 70496; 70498; 71045; 76705; 80048; 80053; 80074; 81001; 82375; 82550; 82607; 82746; 82805; 82948; 83050; 83605; 83735; 84484; 85025; 85027; 85055; 85380; 85610; 85730; 86140; 87040; 87147; 87181; 87186; 87636; 93005; 93306; 96361; 96374; 97110; 97116; 97161; 97165; 97530; 97535; 99285; A9270; G0378; J1815; J3370; J3475; J7040; Q9967

== ENCOUNTER 2022-06-07 00:53 | Day surgery (SDC) | payer MEDICARE, SELFPAY ==
[2022-05-29 15:04] VITALS: BMI 30.2
--- NOTE | 2022-06-06 09:49 | WPDANESEPPF ---
Anes - Initial Pre Proc Eval Procedure: Operation Date: 06/07/22 13:00 Proposed Procedures p Screening Colonoscopy - Epifanio Guillaume MD Date/Time: 06/06/22 09:49 Surgeon: Epifanio Guillaume MD Pre Op Diagnosis: history of colon polyp Patient Data Age: 87 Gender: M Height: 1.75 m Weight: 93 kg Allergies Allergy/AdvReac Type Severity Reaction Status Date / Time Sulfa (Sulfonamide Allergy Severe Rash, HIVES Verified 05/01/22 10:14 Antibiotics) Home Medications Medication Instructions Recorded Confirmed Type finasteride 5 mg tablet 5 mg PO HS 12/30/18 05/29/22 History insulin degludec 100 unit/mL (3 28 unit subcut HS 07/15/19 05/29/22 History mL) subcutaneous pen (Tresiba FlexTouch U-100 insulin) exenatide microspheres 2 mg/0.65 2 mg subcut WEEKLY 08/20/19 05/29/22 History mL subcutaneous pen injector (Bydureon) glimepiride 2 mg tablet 2 mg PO PRN BLOOD SURGAR 08/20/19 05/29/22 History omega 5-rzz-cgs-fish oil 1,000 mg 2 cap PO QAM 08/20/19 05/29/22 History (120 mg-180 mg) capsule (Fish Oil) psyllium husk 0.4 gram capsule 0.4 g PO DAILY 08/20/19 05/29/22 History (Daily Fiber) metoprolol succinate 50 mg 50 mg PO DAILY 04/06/20 05/29/22 History tablet,extended release 24 hr dapagliflozin 10 mg tablet 10 mg PO DAILY 06/05/20 05/29/22 History (Farxiga) amiodarone 200 mg tablet 200 mg PO .COMPLEX 01/15/21 05/29/22 History blood sugar diagnostic (Accu-Chek #200 strips 09/06/21 05/01/22 Rx Rosemarie Plus test strips) levothyroxine 50 mcg tablet 50 mcg PO DAILY 12/25/21 05/29/22 History warfarin 10 mg tablet 10 mg PO .M/W/F/SAT #30 tabs 12/30/21 05/29/22 Rx warfarin 7.5 mg tablet 7.5 mg PO .TUE/THUR/SUN #30 tabs 12/30/21 05/29/22 Rx allopurinol 300 mg tablet 300 mg PO DAILY #90 tabs 03/07/22 05/29/22 Rx amlodipine 10 mg tablet 10 mg PO DAILY #90 tabs 03/07/22 05/29/22 Rx atorvastatin 10 mg tablet 10 mg PO DAILY #30 tabs 04/02/22 05/29/22 Rx tamsulosin 0.4 mg capsule 0.4 mg PO DAILY #90 caps 05/20/22 05/29/22 Rx Gemtesa 75 mg PO DAILY 05/29/22 05/29/22 History ICaps AREDS2 2 caplet PO DAILY 05/29/22 05/29/22 History losartan 100 mg tablet 100 mg PO DAILY #90 tabs 06/05/22 Rx sodium,potassium,mag sulfates 17.5 06/07/22 History gram-3.13 gram-1.6 gram oral soln sodium,potassium,mag sulfates 17.5 06/07/22 History gram-3.13 gram-1.6 gram oral soln Patient hx anesthesia problems: none Family hx anesthesia problems: none Results Review: All pre-operative results and documents have been reviewed as part of the pre-operative evaluation. 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 Colon polyp Gout Metabolic syndrome Mixed hyperlipidemia MRSA infection Stage 3 chronic kidney disease Type 2 diabetes mellitus with other diabetic kidney complication Surgical History Surgical History Hx of cardiac catheterization (~03/06/15) Family History Family History Father Family history of cardiovascular disease Family history of coronary artery disease Family history of malignant neoplasm, Onset Age: 74 Mother Family history of cardiovascular disease Family history of coronary artery disease Patient's mother is , Onset Age: 76 Sibling Family history of malignant neoplasm Family history of coronary artery disease Other Diabetes mellitus Social History Social History Social History: Patient currently lives with his Faustina who will be his surrogate. He retired from [employer] and has 4 boys. He denies any pets in the home. He also wishes to be a full code lam
[2022-06-07 10:16] LABS: Glucose Point of Care 120 mg/dl (65-105)
[2022-06-07 10:18] VITALS: BP 163/81; PULSE 74; RESP 18; TEMP 36.4; O2SAT 99; BMI 28.1
--- NOTE | 2022-06-07 10:23 | PM.HPGS ---
History of Present Illness History of Present Illness Consent: Risks, benefits, and alternatives have been discussed and questions answered. Patient agrees to proceed with procedure. Chief complaint: history of colon polyp Narrative: Yovani Garza is a 87 year old male Presents for colonoscopy. Patient has a prior history of colon polyps. Previous colonoscopy 2018 revealed a rather large colon polyp removed piecemeal fashion. It was anticipated he would return later that year but did well and has not returned until now. He reports his current weight appetite bowel movements are normal. He denies abdominal pain. He has had no bleeding. Family history noncontributory. Review of Systems Review of Systems: Review of systems noncontributory. 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 Colon polyp Gout Metabolic syndrome Mixed hyperlipidemia MRSA infection Stage 3 chronic kidney disease Type 2 diabetes mellitus with other diabetic kidney complication Surgical History Surgical History Hx of cardiac catheterization (~03/06/15) Family History Family History Father Family history of cardiovascular disease Family history of coronary artery disease Family history of malignant neoplasm, Onset Age: 74 Mother Family history of cardiovascular disease Family history of coronary artery disease Patient's mother is , Onset Age: 76 Sibling Family history of malignant neoplasm Family history of coronary artery disease Other Diabetes mellitus Social History Social History Social History: Patient currently lives with his Faustina who will be his surrogate. He retired from [employer] and has 4 boys. He denies any pets in the home. He also wishes to be a full code however only if his life would be viable. Years smoked: 3 Smoking status: Former smoker Additional smoking assessment comments: STATES SMOKED FOR MAYBE 5 YRS LATE TEENS/EARILY 20'S Alcohol intake: never Alcohol use details: STATES HAS NOT DRANK FOR 60YRS Substance use: never Substance use type: does not use Lack of Transportation: YES Lack of Food: Never True Current Housing: I Have Housing Concerned About Future Housing: No Difficulty Paying Gas/Electric Bills: No Difficulty Paying for Meds: No Currently Unemployed: No Education: High School Diploma/GED Difficulty w/ Childcare or Family Care: No Living arrangements: with family Additional living arrangements comments: With Occupation/Education: retired Additional occupation/education comments: [employer] Gender identity (if verbalized by the patient): Male Sexual Orientation (if Verbalized by the Patient): Straight or Heterosexual Spiritual care concerns: No Agree to blood products: Yes Meds Home Medications and Allergies Home Medications Medication Instructions Recorded Confirmed Type finasteride 5 mg tablet 5 mg PO HS 12/30/18 05/29/22 History insulin degludec 100 unit/mL (3 28 unit subcut HS 07/15/19 05/29/22 History mL) subcutaneous pen (Tresiba FlexTouch U-100 insulin) exenatide microspheres 2 mg/0.65 2 mg subcut WEEKLY 08/20/19 05/29/22 History mL subcutaneous pen injector (Bydureon) glimepiride 2 mg tablet 2 mg PO PRN BLOOD SURGAR 08/20/19 05/29/22 History omega 1-xdb-skr-fish oil 1,000 mg 2 cap PO QAM 08/20/19 05/29/22 History (120 mg-180 mg) capsule (Fish Oil) psyllium husk 0.4 gram capsule 0.4 g PO DAILY 08/20/19 05/29/22 History (Daily Fiber) metoprolol succinate 50 mg 50 mg PO DAILY 04/06/20
[2022-06-07] MEDS: LACTATED RINGERS 1,000 ML 150 ML IV CONT (10:51)
[2022-06-07 11:23] LABS: INR 1.2; Prothrombin Time 15.2 Seconds (11.1-14.7)
[2022-06-07 12:16] VITALS: BP 122/61; PULSE 63; RESP 22; O2SAT 97
[2022-06-07 12:26] VITALS: BP 131/69; PULSE 61; RESP 22; O2SAT 98
[2022-06-07 12:36] VITALS: BP 131/69; PULSE 61; RESP 22; O2SAT 98
== END 2022-06-07 12:44 | disposition home or self-care (01) ==
PROVIDERS: PCP Family Medicine; Visit Provider Internal Medicine Gastroenterology
PROC: 0DJD8ZZ Inspection of Lower Intestinal Tract, Via Natural or Artificial Opening Endoscopic (ICD-10-PCS; CPT 45378; principal; 2022-06-07 11:15)
DX: Z12.11 Encounter for screening for malignant neoplasm of colon (principal); D12.4 Benign neoplasm of descending colon; K64.8 Other hemorrhoids; K57.30 Diverticulosis of large intestine without perforation or abscess without bleeding; I48.91 Unspecified atrial fibrillation; I12.9 Hypertensive chronic kidney disease with stage 1 through stage 4 chronic kidney disease, or unspecified chronic kidney disease; E11.22 Type 2 diabetes mellitus with diabetic chronic kidney disease; N18.30 Chronic kidney disease, stage 3 unspecified; E78.2 Mixed hyperlipidemia; M10.9 Gout, unspecified; E66.9 Obesity, unspecified; Z68.28 Body mass index [BMI] 28.0-28.9, adult; Z79.4 Long term (current) use of insulin; Z79.01 Long term (current) use of anticoagulants; Z79.84 Long term (current) use of oral hypoglycemic drugs
CPT/HCPCS: 45385; 36415; 82948; 85610; 88305; J2001; J2704; J7120

== ENCOUNTER 2024-09-23 09:16 | Outpatient (CLI) | payer MEDICARE, SELFPAY ==
--- NOTE | ~2024-09-23 | XR_ITS ---
EXAMINATION: XR chest 2V 09/23/2024 09:53 INDICATION: Cough PROCEDURE: 2 view chest COMPARISON: 03/04/2015 FINDINGS: The lungs are clear. The cardiomediastinal silhouette is within normal limits. There are no pleural effusions. There is no pneumothorax suspected. IMPRESSION: 1: NO ACUTE CARDIOPULMONARY DISEASE. Reviewed, dictated and finalized at location A.
== END 2024-09-23 09:17 | disposition home or self-care (01) ==
LOC: GOSHIMG 09:16
PROVIDERS: PCP Family Medicine; Visit Provider Family Medicine
DX: R05.9 Cough, unspecified (principal); Z87.891 Personal history of nicotine dependence
CPT/HCPCS: 71046